=== PATIENT | female | born 1935 | race Caucasian/White ===

== ENCOUNTER 2020-02-24 13:47 | Emergency (ER) | payer MEDICARE, SELFPAY ==
[2020-02-24 14:09] VITALS: BP 179/102; PULSE 95; RESP 18; TEMP 36.8; O2SAT 98; BMI 24.7
--- NOTE | 2020-02-24 14:09 | ED.FALL ---
HPI - Fall General Chief Complaint: Fall Stated Complaint: FALL LUPE KNEE PAIN Time Seen by Provider: 02/24/20 16:49 Source: patient Mode of arrival: EMS Limitations: no limitations History of Present Illness HPI Narrative: Patient presents to the ED for fall. Patient states she was walking in her house and she tripped over furniture and landed on her back and hit her knees. Patient denies feeling dizzy, having chest pain, headache, abdominal pain, or shortness of breath before falling. Patient denies being on any blood thinners. Patient states she had knee pain earlier but then resolved. Patient states presently she just wants to eat food and has no complaints. MD complaint: fall Fall from: standing Fall witnessed: yes, by family Place fall occurred: home Loss of consciousness: none Related Data Previous Rx's Medication Instructions Recorded lisinopril 20 mg tablet 20 mg PO DAILY #90 tab 02/21/20 acetaminophen [Tylenol] 325 mg PO QID PRN #28 cap 02/24/20 Allergies Allergy/AdvReac Type Severity Reaction Status Date / Time novacaine Allergy Unknown unsure Uncoded 01/23/19 00:00 Review of Systems Review of Systems: Patient presently denies any physical complaints and would just like to eat some food. Constitutional: Constitutional: Reports as per HPI and Reports no additional constitutional complaints Eyes: Eyes: Reports as per HPI and Reports no additional eye complaints ENT: Reports system reviewed and no additional complaints, except as documented and Reports as per HPI Cardiovascular: Cardiovascular: Reports as per HPI and Reports no additional cardiovascular complaints Respiratory: Respiratory: Reports as per HPI and Reports no additional respiratory complaints Gastrointestinal: Gastrointestinal: Reports as per HPI and Reports no additional gastrointestinal complaints Musculoskeletal: Musculoskeletal: Reports no additional musculoskeletal complaints and Reports as per HPI Neurologic: Reports system reviewed and no additional complaints, except as documented and Reports as per HPI [facility] Past Medical History Medical History (Updated 02/24/20 @ 16:12 by HUGO Dukes) Hypertension Social History Social History Advance Directives: No Advance Directives Information Provided: Yes Physical Exam Vital Signs: Vital Signs: Vital Signs Temp Pulse Resp BP Pulse Ox 02/24/20 15:16 72 18 171/72 H 95 02/24/20 15:13 95 171/72 H 02/24/20 14:09 98.3 F 95 18 179/102 H 98 Body Mass Index 24.7 Const: General: cooperative, healthy appearing, comfortable, no acute distress, well developed, alert and awake Orientation/consciousness: oriented to person, oriented to place, oriented to time and patient oriented x3 HENMT: Head: Yes normal to inspection, Yes No palpable skull fracture present, No atraumatic, No abrasion, No Peña's sign, No hematoma, No laceration, No palpable skull fracture, No raccoon eyes and No scalp lesion Eyes: General: appearance normal, both eyes and all related structures Neck: Neck: Yes normal visual inspection, Yes full ROM, No no lymphadenopathy, Yes no meningeal signs, No positive Brudzinski's sign and No positive Kernig's sign Chest: Other: Negative for any ecchymosis or tenderness. Chest palpation & inspection: normal inspection of the chest and normal palpation of entire chest wall Resp: Effort & Inspection: normal respiratory effort, able to speak in complete sentences, respiratory effort not decreased, no grunting, not labored, no nasal flaring, no paradoxical thoraco-abdom movements, no pursed lip breathing, no retractions and no tripod positioning Auscultation: clear to auscultation bilaterally, no crackles, no rales, no rhonchi and no wheezes Cardio: Jugular venous distension: no JVD Heart sounds: S1 normal heart sound present and S2 normal heart sound present GI: Other: Negative for any ecchymosis or tenderness. Inspection: Yes normal to inspection and No abdominal wall ecchymosis Palpation (GI): Soft to palpation, not firm, nontender, no guarding and not rigid : General: No CVA tenderness and Yes no CVA tenderness Back/Spine/Pelvis: Other: Negative for any ecchymosis or tenderness Back: no CVA tenderness, No CVA tenderness and No back tenderness Skin: General skin exam: no rashes or lesions noted Trauma: no lacerations or abrasions, no abrasions, no lacerations and no punctures noted Neuro: General: oriented to person, oriented to place, oriented to time, patient oriented x3, gait normal, no meningeal signs and CN's II-XI intact bilaterally Cranial nerves: Yes CN's II-XII intact bilaterally Extrem: Other: patient has complete range of motion of all extremities. Patient does not have any hip tenderness or lower extremity tenderness. Negative for any internal or external rotation of lower extremities. Course Course Course Narrative: Patient presently is asymptomatic, but due to age patient will be sent for head CT, C-spine, and pelvic x-ray. Patient also be sent for bilateral knee x-ray. Patient will have a fast exam at bedside. Patient blood pressure elevated because she admitted to not taking her lisinopril this morning. Lisinopril will be ordered. Presently no labs indicated. Reevaluation(s) Reevaluation #1: Bedside fast ultrasound negative for any bleeding. Presently once again patient denies any pain. Time: 15:54 Reevaluation #2: patient images came back negative. Patient is safe for discharge. Time: 15:54 Reevaluation #3: Daughter want mother to get more services due to her falling in the house when she is alone. Spoke with case management Ana Maria who spoke with patient. Patient agreed to plan for her to have [facility] referral for more services at the house when she is alone. Daughter agrees the plan and feels safe taking mother back to the house. Case management Ana Maria wrote a referal for physical therapy/safety check and [facility] services. Time: 16:51 MDM - Fall MDM Narrative Medical decision making narrative: Mechanical fall. Discharge Plan Discharge Clinical Impression: Accident due to mechanical fall without injury Patient Disposition: Home, Self-Care Instructions: Fall Prevention (ED) Additional Instructions: return to the ED immediately for headache, nausea, vomiting, dizziness, chest pain, shortness of breath, abdominal pain, rectal bleeding, vomiting blood, blood in urine, or any other concerning symptoms. Prescriptions: New acetaminophen [Tylenol] 325 mg capsule 325 mg PO QID PRN (Reason: pain) Qty: 28 RF: 0 No Action lisinopril 20 mg tablet 20 mg PO DAILY Qty: 90 RF: 3 Referrals: Karmen Grimaldo MD [Primary Care Provider] - 2 days ( Mechanical fall. No injury.) Interventions: ED Discharge Assessment Last Done: 02/24/20 18:03 Print Language: Greenlandic
--- NOTE | 2020-02-24 14:15 | CT_ITS ---
EXAMINATION: CT HEAD WITHOUT CONTRAST CLINICAL INFORMATION: Fall, trauma, pain COMPARISON: None TECHNIQUE: Contiguous axial imaging was performed from the skull base to vertex without intravenous administration of contrast. Additional 2-D coronal and sagittal reformatted images are generated on the CT workstation and uploaded to PACS. DOSE LOWERING TECHNIQUES: This CT examination was performed using dose optimization techniques as appropriate, variously including the following: *Automated exposure control *Adjustment of mA and/or kV according to patient size (this includes techniques or standardized protocols for targeted exams where dose is matched to indication/reason for exam; i.e. extremities or head) *Use of iterative reconstruction technique DLP: 653 mGy-cm FINDINGS: There is no intracranial hemorrhage, hematoma, or extra-axial fluid collection. There is mild fullness of the ventricles and cortical sulci and fissures and cisterns representing some mild atrophic changes consistent with the patient's age. There is no hydrocephalus, edema, or mass effect. The nettles-white matter differentiation appears grossly symmetric. There is no visible acute territorial infarct or mass lesion. The calvarium appears intact. There is no pneumocephalus or orbital emphysema. The visualized sinuses and middle ears and mastoid air cells show no significant mucosal thickening. There are no air-fluid levels. IMPRESSION: No acute intracranial abnormality.
--- NOTE | 2020-02-24 14:15 | XR_ITS ---
EXAMINATION: X-RAY THE OF THE PELVIS AND HIPS, AND X-RAYS OF BOTH KNEES CLINICAL INFORMATION: Trauma and 84-year-old female patient. COMPARISON: None TECHNIQUE: AP pelvis with cone-down AP and frog leg lateral views of both hips, AP and lateral views of both knees. FINDINGS: Pelvis/hips: The pelvis is intact showing no evidence of fracture. The hips are not dislocated or fractured. There is joint space narrowing of the right hip joint compared to the left. Both knees: Neither knee shows evidence of a fracture or dislocation. There is a small suprapatellar joint effusion of the right knee. Arterial vascular calcifications are present in the adjacent soft tissues. IMPRESSION: Negative for fracture or dislocation. Small joint effusion, right knee.
--- NOTE | 2020-02-24 14:15 | CT_ITS ---
EXAMINATION: CT CERVICAL SPINE WITHOUT CONTRAST CLINICAL INFORMATION: Fall, trauma, pain COMPARISON: CT head 02/24/2020 TECHNIQUE: Multidetector volumetric CT imaging of the cervical spine is performed without contrast in the axial plane. Additional 2D reformatted coronal and sagittal images are generated on the CT workstation and uploaded to PACS. DOSE LOWERING TECHNIQUES: This CT examination was performed using dose optimization techniques as appropriate, variously including the following: *Automated exposure control *Adjustment of mA and/or kV according to patient size (this includes techniques or standardized protocols for targeted exams where dose is matched to indication/reason for exam; i.e. extremities or head) *Use of iterative reconstruction technique DLP: 204 mGy-cm FINDINGS: There is straightening of the cervical lordosis and mild levocurvature. The craniocervical junction is normal. The odontoid appears intact. There is no visible fracture, cervical vertebral compression, prevertebral soft tissue swelling, or destructive process. There are degenerative disc changes with disc narrowing C4-C5, C5-C6, C6-C7, and C7-T1. There are degenerative facet changes mid and lower cervical spine. There is mild spondylolisthesis C4-C5 under 2 mm and C7-T1 under 3 mm, likely related to the degenerative changes. No perched facet. No apical pneumothorax. IMPRESSION: 1. No acute bony abnormality or prevertebral soft tissue swelling. 2. Multilevel degenerative disc and degenerative facet changes. 3. Mild spondylolisthesis C4-C5 under 2 mm and C7-T1 under 3 mm, likely related to the degenerative changes.
--- NOTE | 2020-02-24 15:03 | PC.NURSE ---
PT ARRIVES HAVING FALLEN YESTERDAY, MECHANICAL FALL. ALTERED AT BASELINE, A&O TO PERSON AND PLACE. FELL ONTO GROUND, KNEES FIRST AND R BUTTOCK. C/O KNEE PAIN MOSTLY IN R KNEE. NO OPEN AREAS. SLIGHT SWELLING. PA AT BEDSIDE. RESP AND NONLABOURED.
--- NOTE | 2020-02-24 15:05 | PC.NURSE ---
PT DENIES HAVING TAKEN HTN MEDS THIS AM
[2020-02-24 15:13] VITALS: BP 171/72; PULSE 95
[2020-02-24] MEDS: lisinopriL 20 MG TABLET PO (15:13)
[2020-02-24 15:16] VITALS: BP 171/72; PULSE 72; RESP 18; O2SAT 95
--- NOTE | 2020-02-24 15:16 | PC.NURSE ---
PA TO BEDSIDE WITH US
--- NOTE | 2020-02-24 17:36 | MHC.CM.ED ---
PAT[facility]CHARG[facility] HOME [facility]. DUE TO TIME OF REFERRAL, NO RESPONSE RECEIVED. CASE MANAGEMENT TO FOLLOW UP IN MORNING.
== END 2020-02-24 18:15 | disposition home or self-care (01) ==
PROVIDERS: Emergency Provider Emergency Medicine; PCP Internal Medicine
DX: Z71.1 Person with feared health complaint in whom no diagnosis is made (principal); I10 Essential (primary) hypertension
CPT/HCPCS: 70450; 72125; 73521; 73560; 99284

== ENCOUNTER 2020-10-27 08:23 | Outpatient (REF) | payer MEDICARE, SELFPAY ==
--- NOTE | 2020-10-27 15:55 | MHC.AU.ANR ---
Adult Audiological Evaluation Date of Visit: 10/27/20 Reason for Appointment: Audiological evaluation due to concern for decreased hearing. Ms. Duffy notes difficulties hearing and understanding speech. She notes that she has wax in her ears and feels that the left ear is worse. Does patient feel they have a hearing loss?: Yes If Yes, Which Ear?: Both Ears When Was Hearing Difficulty First Noticed?: 3+ years ago Has hearing been tested previously?: No Hearing Handicap Inventory: HHIE SCORE: 40 Based on HHIE score, patient has: Severe perceived hearing handicap Medical History: Medical History: High Blood Pressure Medical History (Other): Broken wrist in 2002, broken ankle 2001 Allergies: Roses Medication List: Atorvastatin 20 mg, Lisinopril 20 mg Otoscopy: Right Ear: Totally occluding cerumen, removed successfully with a lighted curette Left Ear: Totally occluding cerumen, removed successfully with a lighted curette Tympanometry: Tympanometry performed due to: To determine if cerumen blockage is fully occluding canal(s) Right Ear: Normal Middle Ear System (Type A) Left Ear: Normal Middle Ear System (Type A) Hearing Evaluation: Transducer(s) Used: Insert Earphones, Bone Conduction Method: Conventional Audiometry Stimuli Used: Pure Tones Right Ear: Description of Hearing: Mild sloping to moderately severe sensorineural hearing loss from 250-8000 Hz. Left Ear: Description of Hearing: Normal hearing 250-500 Hz, sloping to a mild to moderately severe sensorineural hearing loss from 0151-8238 Hz. Speech Recognition Threshold (SRT): Method Used: Monitored Live Voice Stimuli Used: Spondee Words Right Ear: 30 dBHL Left Ear: 25 dBHL Word Discrimination: Method: Recorded Lists Word Lists Used: NU-6 Right Ear: 68% at 70 dBHL, 72% at 75 dBHL Left Ear: 76% at 70 dBHL Recommendations: Audiological re-evaluation in one year. Trial with amplification is recommended. Binaural hearing aids are recommended based on the type and degree of hearing loss and Ms. Duffy's sharing listening concerns. Hearing aid options were discussed and hearing aids are being ordered. Diagnosis: Primary Diagnosis: H90.3 Bilateral Sensorineural Hearing Loss Services Performed: Services Performed: Comprehensive Audiological Evaluation (CPT 53484) Tympanometry (CPT 72616) Signature: Provider: Ammy Linton, CCC-A
--- NOTE | 2020-10-27 15:56 | MHC.AU.MED ---
Medical Clearance for Hearing Instrumentation Date: 10/27/20 Patient Name: Nikia Duffy Date of : 1935 Referring Provider: Karmen Tierney MD We have seen your patient on 10/27/20 and have determined that they are a candidate for amplification (See accompanying report). Specifically, they would benefit from: Hearing aid use in both ears There is a statute that addresses Medical Evaluation Requirements prior to fitting a patient with a hearing aid. According to [place] statute 265 CMR:6.03(1), (a) General. Except as provided in 265 CMR 6.03(1)(b), a cap sewer shall not sell a hearing aid unless the prospective user has presented to the cap sewer a written statement signed by a licensed physician that states that the patient's hearing loss has been medically evaluated and the patient may be considered a candidate for a hearing aid. The medical evaluation must have taken place within the preceding six months. Please note: Due to the [place] Statute referenced above, we cannot accept a signature other than that of a licensed physician. EDGE BANDER OPERATOR and PA signatures cannot be accepted. I am in agreement with the above recommendation. There is no medical contraindication for hearing instrumentation. Physician Signature Date Physician Name (Printed)
== END 2020-10-27 08:24 | disposition home or self-care (01) ==
LOC: HO.SH 08:23
PROVIDERS: Visit Provider Internal Medicine
DX: H91.90 Unspecified hearing loss, unspecified ear (principal)
CPT/HCPCS: 92557; 92567

== ENCOUNTER 2020-10-27 09:55 | Outpatient (REF) | payer SELFPAY ==
--- NOTE | 2020-10-27 16:20 | MHC.AU.HAS ---
Hearing Aid Evaluation Date of Visit: 10/27/20 Historical Information: Description of Hearing: Mild to moderately severe sensorineural hearing loss bilaterally Summary: Ms. Duffy was seen today for an audiological evaluation and binaural hearing aids are recommended. She is a new hearing aid user. Discussed style and technology options. Interested in trying rechargeable ROZINA style aids with custom earmolds. Hearing Aid Prescription: Based on the individual?s shared listening needs, communication environments, dexterity, desire for connectivity, and personal preferences, the following prescription for amplification has been made: Right ear: Hub Cutter Apprentice: Phonak Model: Audeo P90-R Battery Size: Rechargeable Color: P5 - Champagne Oxidation Operator: Size 1 M Type of Mold: cShell Left ear: Left ear prescription to be same as Right Hearing Aid above: Hub Cutter Apprentice: Phonak Model: Audeo P90-R Battery Size: Rechargeable Color: P5 - Champagne Oxidation Operator: Size 1 M Type of Mold: cShell Accessories/Assistive Technology Recommended: TV Connector Promo Plan of Care: Earmold Impressions Taken. Medical Clearance to be requested from PCP/ENT. Hearing Instrument Fitting to be scheduled when materials arrive. Hearing aids ordered. Primary Diagnosis: H90.3 Bilateral Sensorineural Hearing Loss Signature: Provider: Ammy Linton, KAYY-A
== END 2020-10-27 09:56 | disposition home or self-care (01) ==
LOC: HO.HAP 09:55
PROVIDERS: Visit Provider Internal Medicine
DX: Z46.1 Encounter for fitting and adjustment of hearing aid (principal)
CPT/HCPCS: 92591; 92700

== ENCOUNTER 2020-12-07 10:12 | Outpatient (REF) | payer SELFPAY | END 2020-12-07 10:13 | disposition home or self-care (01) | LOC: HO.HAP 10:12 | PROVIDERS: Visit Provider Internal Medicine | DX: Z46.1 Encounter for fitting and adjustment of hearing aid (principal); H90.3 Sensorineural hearing loss, bilateral | CPT/HCPCS: V5261; V5299 ==

== ENCOUNTER 2021-04-05 08:55 | Inpatient (IN) | payer MEDICARE, SELFPAY ==
--- NOTE | ~2021-04-05 | US_ITS ---
EXAMINATION: US PELVIS CLINICAL INFORMATION: Left adnexal mass. Pain. COMPARISON: None TECHNIQUE: Transabdominal pelvic ultrasound was performed. Doppler evaluation of the ovarian vessels including waveform spectral analysis was performed. FINDINGS: The uterus is anteverted and measures 8.7 x 2.7 x 4.5 cm. No focal uterine lesion is seen. Endometrial thickness measures 7 mm which is slightly thickened for a postmenopausal patient. The ovaries are not identified. There is question of a complex partially solid partially cystic right adnexal mass that measures 3.8 x 2.3 x 2.9 cm. There is a solid left adnexal mass that measures 7.5 x 4.5 x 5.4 cm. Arterial and venous flow is documented to both adnexa. There is no evidence of torsion. There is no fluid in the pelvis. US/US pelvic complete IMPRESSION: 7.5 x 4.5 x 5.7 cm solid left adnexal mass. Question 3.8 x 2.3 x 2.9 cm complex cystic right adnexal lesion. No evidence of torsion. Minimally thickened endometrium.
--- NOTE | ~2021-04-05 | CT_ITS ---
EXAMINATION: CT CHEST WITHOUT CONTRAST CLINICAL INFORMATION: Hypoxia COMPARISON: Previous chest x-ray from earlier the same day TECHNIQUE: Multidetector volumetric CT imaging of the chest was done. Axial MIP volume rendering provided. Sagittal and coronal reformatted images were obtained. This CT examination was performed using dose optimization techniques as appropriate, variously including the following: *Automated exposure control *Adjustment of mA and/or kV according to patient size (this includes techniques or standardized protocols for targeted exams where dose is matched to indication/reason for exam; i.e. extremities or head) *Use of iterative reconstruction technique DLP: 247 mGy-cm FINDINGS: CAREER COACH: LUNGS: There is a 3 mm calcified right upper lobe nodule axial image 132 series 7. There are bilateral 2 mm noncalcified right upper lobe nodule axial image 132 series 7. There is a 3 mm peripheral or subpleural right upper lobe nodule adjacent to the major fissure axial image 139 series 7. There is subsegmental atelectasis or scarring in the anterior segment of the right upper lobe and bilateral lower lobes. MEDIASTINUM: The heart is enlarged. There is coronary artery calcification. There is no pericardial effusion. The thoracic aorta is normal in caliber. There are no enlarged hilar or mediastinal lymph nodes. PLEURA: There is a small left pleural effusion. There is no right pleural effusion or pleural thickening. There is no pneumothorax. AXILLA: No lymphadenopathy. OSSEOUS STRUCTURES: There are degenerative changes of the spine. There is increased thoracic kyphosis. 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 Ankylosing spondylitis should be considered. There are degenerative changes at the shoulder joints. CT/CT chest wo con IMPRESSION: Small calcified and noncalcified pulmonary nodules or micronodules. According to the UPDATED 2017 Fleischner Society recommendations, the advised follow-up imaging for less than 6 mm nodule: Low risk, no chest CT follow-up and high risk, optional chest CT follow-up in one year. Bibasilar atelectasis and right upper lobe atelectasis. Small left pleural effusion. Fleischner guidelines were followed.
--- NOTE | ~2021-04-05 | US_ITS ---
EXAMINATION: US PELVIS CLINICAL INFORMATION: Left adnexal mass. Pain. COMPARISON: None TECHNIQUE: Transabdominal pelvic ultrasound was performed. Doppler evaluation of the ovarian vessels including waveform spectral analysis was performed. FINDINGS: The uterus is anteverted and measures 8.7 x 2.7 x 4.5 cm. No focal uterine lesion is seen. Endometrial thickness measures 7 mm which is slightly thickened for a postmenopausal patient. The ovaries are not identified. There is question of a complex partially solid partially cystic right adnexal mass that measures 3.8 x 2.3 x 2.9 cm. There is a solid left adnexal mass that measures 7.5 x 4.5 x 5.4 cm. Arterial and venous flow is documented to both adnexa. There is no evidence of torsion. There is no fluid in the pelvis. US/US pelvic ovarian doppler IMPRESSION: 7.5 x 4.5 x 5.7 cm solid left adnexal mass. Question 3.8 x 2.3 x 2.9 cm complex cystic right adnexal lesion. No evidence of torsion. Minimally thickened endometrium.
--- NOTE | ~2021-04-05 | XR_ITS ---
EXAMINATION: XR CHEST CLINICAL INFORMATION: Hypoxia. COMPARISON: None TECHNIQUE: 2 views of the chest were obtained. FINDINGS: The left diaphragm is elevated with mild atelectatic changes left lung base. Rest of lungs are clear. The heart size and pulmonary vascularity is normal. No gross bony abnormality seen. XR/XR chest 2V IMPRESSION: Limited left hemidiaphragm with left basilar atelectasis. Rest of the lungs are clear.
--- NOTE | ~2021-04-05 | CT_ITS ---
EXAMINATION: CT ABDOMEN AND PELVIS WITHOUT CONTRAST CLINICAL INFORMATION: Abdominal pain and distention COMPARISON: None TECHNIQUE: Multidetector volumetric imaging was performed from the superior aspect of the liver through the pubic symphysis. Sagittal and coronal reformatted images were obtained on the technologist's workstation. This CT examination was performed using dose optimization techniques as appropriate, variously including the following: *Automated exposure control *Adjustment of mA and/or kV according to patient size (this includes techniques or standardized protocols for targeted exams where dose is matched to indication/reason for exam; i.e. extremities or head) *Use of iterative reconstruction technique DLP: 676 mGy-cm FINDINGS: LIVER, GALLBLADDER, AND BILIARY TREE: The liver is normal in size, shape, and attenuation. No focal hepatic lesion or biliary ductal dilatation is present. There are gallstones. The gallbladder is otherwise unremarkable. PANCREAS: Unremarkable. SPLEEN: Unremarkable. ADRENAL GLANDS: Unremarkable. KIDNEYS AND URETERS: The kidneys are normal in size, shape, and attenuation. No hydronephrosis, hydroureter, or calculi seen. There is a small 5 mm hyperdense cyst in the left kidney. BLADDER: Unremarkable. GASTROINTESTINAL TRACT: The small bowel is normal in caliber. The colon is dilated down to the rectum. The cecum and transverse colon contain a large amount of stool. The splenic flexure and proximal left colon appears air-filled. The distal left colon and sigmoid colon appear fluid filled. There is question of mild wall thickening of the distal left colon and sigmoid colon/mild colitis. There is stranding of the fat and prominent vessels in the mesentery adjacent to the left colon and sigmoid colon. There is a left inguinal hernia containing small bowel. There is no evidence of obstruction. There may be a small hiatal hernia. The stomach is otherwise unremarkable. ABDOMINAL WALL: There is a small umbilical hernia containing fat. There is a small right inguinal hernia containing fat and fluid. There is a left inguinal hernia containing small bowel. There is no evidence of obstruction. LYMPH NODES: Normal. VASCULAR: Atherosclerotic disease. PELVIC VISCERA: There is increased soft tissue seen in the left pelvis worrisome for a left adnexal mass. This measures 4.6 x 7 x 8.6 cm. The uterus and right adnexa are unremarkable. OSSEOUS STRUCTURES: There are degenerative changes of the spine and hip joints.. CT/CT abdomen pelvis wo con IMPRESSION: Dilated colon down to the rectum. Large amount of stool in the proximal colon. The distal colon appears fluid-filled and there is question of mild bowel wall thickening of the distal left and sigmoid colon/mild colitis and changes in the mesentery. Colonic ileus and distal obstruction should be considered. Imaging follow-up recommended. Normal caliber small bowel. Left inguinal hernia containing small bowel. No evidence of obstruction. Small umbilical hernia containing fat and right inguinal hernia containing fat and small amount of fluid. Gallstones. 4.5 x 7 x 8.5 cm left pelvic mass probably representing an adnexal mass. This could be better evaluated with pelvic ultrasound. Fleischner guidelines were followed.
--- NOTE | ~2021-04-05 | CT_ITS ---
EXAMINATION: CT HEAD WITHOUT CONTRAST CLINICAL INFORMATION: Weakness/confusion COMPARISON: CT 02/24/2020 TECHNIQUE: Contiguous axial imaging was performed from the skull base to vertex without intravenous administration of contrast. This CT examination was performed using dose optimization techniques as appropriate, variously including the following: *Automated exposure control *Adjustment of mA and/or kV according to patient size (this includes techniques or standardized protocols for targeted exams where dose is matched to indication/reason for exam; i.e. extremities or head) *Use of iterative reconstruction technique DLP: 868 mGy-cm FINDINGS: There is no evidence of acute intracranial hemorrhage or territorial infarction. No abnormal mass effect or midline shift is seen. Negrete to white matter differentiation is well preserved. No extra-axial fluid collections are identified. The lateral ventricles are symmetrical in size and configuration without enlargement. There is mild periventricular hypodensity in both cerebral hemispheres without mass effect. The osseous structures and soft tissues are normal. The mastoid air cells and visualized portions of the paranasal sinuses are well aerated. CT/CT head/brain wo con IMPRESSION: No acute intracranial process seen. Age-related mild cerebral volume loss with chronic small vessel ischemic changes. No change from CT brain 02/24/2020
[2021-04-05 09:05] VITALS: BP 137/61; PULSE 94; RESP 18; TEMP 37.9; O2SAT 92; BMI 24.0
--- NOTE | 2021-04-05 09:11 | ECG_ITS ---
Test Reason : weakness Blood Pressure : / mmHG Vent. Rate : 091 BPM Atrial Rate : 091 BPM P-R Int : 146 ms QRS Dur : 088 ms QT Int : 370 ms P-R-T Axes : 063 019 -06 degrees QTc Int : 455 ms Sinus rhythm with Premature supraventricular complexes Nonspecific T wave abnormality Abnormal ECG When compared with ECG of 01-MAY-2002 09:48, T wave inversion now evident in Inferior leads Lateral leads Referred By: Alicia Harkins Electronically Signed By:LAURI EVANS MD
[2021-04-05 09:19] VITALS: BP 114/45; PULSE 90; RESP 18; O2SAT 98
[2021-04-05 09:21] LABS: MANUAL DIFF FLAG NO
[2021-04-05 09:24] LABS: Basophils Percent Auto 0.2 % (0-2); Eosinophils Percent Auto 0.1 % (0-4); Hematocrit 36.8 % (37.0-47.0); Hemoglobin 12.2 g/dl (12.0-16.0); Imm Gran Abs Auto 0.02 X10*3/uL (0.00-0.03); Imm Gran Pct Auto 0.2 % (0.0-0.4); Lymphocytes Percent Auto 11.9 % (20-40); Mean Corpuscular HGB Conc 33.2 g/dl (31.0-35.0); Mean Corpuscular Hemoglobin 30.8 pg (27.0-33.0); Mean Corpuscular Volume 92.9 fL (80.0-98.0); Mean Platelet Volume 9.2 fL (9.4-12.3); Monocytes Absolute Auto 1.3 X10*3/uL (0.1-1.2); Monocytes Percent Auto 15.7 % (2-11); Neutrophils Absolute Auto 5.8 x10*3/uL (2.0-8.3); Neutrophils Percent Auto 71.9 % (45-73); Platelet Count 235 X10*3/uL (160-400); Red Blood Count 3.96 X10*6/uL (4.20-5.50); Red Cell Distribution Width 12.7 % (11.0-16.0); White Blood Count 8.1 X10*3/uL (4.8-10.8)
[2021-04-05] MEDS: 0.9 % Sodium Chloride 1,000 ML 999 ML IVCONT (09:26)
[2021-04-05] MEDS: Acetaminophen 325 MG TABLET 650 MG PO (09:26)
--- NOTE | 2021-04-05 09:28 | ED_ITS ---
HPI - Weakness General Chief complaint: Weakness Stated complaint: AMS,WEAKNESS,DIARRHEA,FOUL URINE Time Seen by Provider: 04/05/21 09:10 Source: patient and EMS Mode of arrival: EMS Limitations: altered mental status History of Present Illness HPI Narrative: 85-year-old female with a history of mild dementia, HTN, HLD presents to the ER via EMS from home for evaluation of weakness and confusion for the last couple of days per family. Family reports she is usually able to walk with a walker but has been unable to due to weakness. She has had decreased p.o. intake. They noticed that she has had very foul-smelling urine and concern for a UTI. She also has had very watery and foul smelling diarrhea for the last 7 days. She denies abdominal pain. Patient has no complaints on arrival aside from some generalized weakness. She knows it is 2020 but thinks we just celebrated [place] Day. She denies any pain, nausea, vomiting, shortness of breath. She was hypoxic for EMS in the high 80s. On arrival here SpO2 89-90% on room air so was placed on 2 L nasal cannula with improvement to 99%. She denies any shortness of breath or cough. She denies dysuria. MD Complaint: generalized weakness Onset (ago): day(s) (2) Duration: progressively worsening Location: generalized Migration: none Severity: moderate Relieving factors: none Exacerbating factors: none Associated symptoms: confusion and loss of appetite Related Data Home Medications Medication Instructions Recorded Confirmed lisinopril 20 mg tablet 1 tab PO DAILY 04/05/21 04/05/21 Previous Rx's Medication Instructions Recorded acetaminophen 325 mg capsule 325 mg PO QID PRN #28 cap 02/24/20 (Tylenol) atorvastatin 20 mg tablet 20 mg PO DAILY #90 tab 07/05/20 Allergies Allergy/AdvReac Type Severity Reaction Status Date / Time novacaine Allergy Intermediate Dizziness Uncoded 08/11/20 14:11 Review of Systems Review of Systems: Constitutional: No Fever, No Chills ENT/Mouth: No sore throat, No Rhinorrhea, No Swallowing Difficulty Eyes: No Eye Pain, No Swelling, + Redness Cardiovascular: No Chest Pain, No SOB, No Orthopnea, No Edema Respiratory: No Cough, No Sputum, No Wheezing, No dyspnea Gastrointestinal: No Nausea, No Vomiting, + Diarrhea, No abdominal Pain, No Hematochezia, No Melena Genitourinary: No Dysuria, No Urinary Frequency, No Hematuria Musculoskeletal: No joint pain, No Myalgias Skin: No Skin Lesions, No rash Neuro: + Weakness, No Numbness, No Dizziness, No Headache Psych: No Anxiety/Panic, No Depression Heme/Lymph: No Bruising, No Lymphadenopathy Endocrine: No Polyuria, No Polydipsia PMFSH Past Medical History Attestation statement: The following information was validated with the patient. Medical History Dyslipidemia Fall Hearing loss Hypertension Surgical History History of arthroplasty of left ankle Family History Family History Father No problems noted. Mother CAD (coronary artery disease) Social History Social History Alcohol intake: never Patient Tobacco Use Status: Never used Tobacco Use of substances other than those prescribed or required for medical reasons: No Advance Directives: Yes Advance Directives on File: Yes Advance Directives Date on File: 04/05/21 Physical Exam Vital Signs: Vital Signs: Last Vital Signs Temp 98.0 F 04/05/21 14:26 Pulse 82 04/05/21 14:26 Resp 18 04/05/21 14:26 BP 116/51 L 04/05/21 14:26 Pulse Ox 96 04/05/21 14:26 Body Mass Index 24.0 Appearance: Elderly female laying in bed, eyes closed. Comfortable. Oriented X2. No acute distress. Eyes: Pupils equal, round and reactive to light. Left eye with medial subconjuntival hemorrhage ENT: Pharynx normal. Neck: Normal inspection. Neck supple. CVS: Normal heart rate and rhythm. Pulses normal. +murmur best appreciated at right sternal border Respiratory: No respiratory distress. Breath sounds diminished at bilateral bases, no wheezes, rhonchi or rales. Abdomen: Softly distended and nontender. +BS x4 Skin: Skin warm and dry. Normal skin color. Normal skin turgor. No rashes. Extremities: 1+ lower extremity edema to lower legs and ankles. No calf tenderness Neuro: Oriented X 2. No motor deficit. No sensory deficit. Generalized weakness noted, nonfocal. Course Course Course Narrative: 85-year-old female with a history of mild dementia, HTN, HLD presenting to the ER for weakness, confusion and foul-smelling urine & watery diarrhea for the last 2 days. Concern for UTI. She has a low-grade fever of 100.3 with heart rate 94 and saturation 90% on room air. SpO2 on 2 L nasal cannula is 99%. No respiratory complaints. Will obtain two view chest x-ray to rule out pneumonia along with metabolic and septic workup. Anticipate patient will need to be admitted. Reevaluation(s) Reevaluation #1: No leukocytosis. BUN slightly elevated 25 with normal creatinine. Her urinalysis is negative for infection. Chest x-ray showing left basilar atelectasis limited due to rotation of note there is significant colonic distention lot noted below the diaphragm. Will proceed with CT chest abdomen pelvis for further evaluation. Will empirically treat for possible left lower lobe pneumonia with Rocephin and azithromycin. Reevaluation #2: Patient had large volume very watery and foul-smelling stool. Confirm with family at the bedside that she has not been on antibiotics r ecently. She has no history of C diff. No one else at home is sick. CT scan of the abdomen is showing a dilated colon down to the rectum. There was a large amount of stool in the proximal colon. Question of some mild wall thickening in the left distal colon and sigmoid colon consistent with possible colitis with changes in the mesentery. Colonic ileus and distal obstruction may be considered however she is having large volume stools. Of note there is also a large 4 x 7 x 5 cm pelvic mass most likely originating from the left adnexa. Pelvic ultrasound will be ordered to further evaluate. She does not have any left lower quadrant or left-sided pelvic pain to suggest ovarian torsion. Will have surgery look at the imaging to see if they agree with the assessment of possible distal obstruction. Reevaluation #3: Dr. Martin evaluated the CT scan does not feel it is consistent with colonic obstruction. He is recommending a GI evaluation of possible flex sigmoidoscopy. Hospitalist has been contacted for admission for further management. Patient and family updated at the bedside. Consultations Consultation #1: Dr. Martin - General Surgery MDM - Weakness Lab Data Result diagrams: 04/05/21 09:15 04/05/21 09:15 Labs: Lab Results 04/05/21 04/05/21 04/05/21 Range/Units 09:15 09:15 09:15 WBC 8.1 (4.8-10.8) X10*3/uL RBC 3.96 L (4.20-5.50) X10*6/uL Hgb 12.2 (12.0-16.0) g/dl Hct 36.8 L (37.0-47.0) % MCV 92.9 (80.0-98.0) fL MCH 30.8 (27.0-33.0) pg MCHC 33.2 (31.0-35.0) g/dl RDW 12.7 (11.0-16.0) % Plt Count 235 (160-400) X10*3/uL MPV 9.2 L (9.4-12.3) fL Immature Gran % (Auto) 0.2 (0.0-0.4) % Neut % (Auto) 71.9 (45-73) % Lymph % (Auto) 11.9 L (20-40) % [place] % (Auto) 15.7 H (2-11) % Eos % (Auto) 0.1 (0-4) % Baso % (Auto) 0.2 (0-2) % Lymph # (Auto) 1.0 L (1.2-4.9) X10*3/uL [place] # (Auto) 1.3 H (0.1-1.2) X10*3/uL Eos # (Auto) 0.0 (0.0-0.4) X10*3/uL Baso # (Auto) 0.0 (0.0-0.2) X10*3/uL Abs Immat Gran (auto) 0.02 (0.00-0.03) X10*3/uL Absolute Neuts (auto) 5.8 (2.0-8.3) x10*3/uL Absolute Nucleated RBC 0.000 (0.0-0.012) X10*3/uL Nucleated RBC % (auto) 0.0 (0.0-0.2) /100WBC Sodium 137 (135-145) mmol/L Potassium 3.9 (3.3-5.1) mmol/L Chloride 103 (96-108) mmol/L Carbon Dioxide 26 (22-29) mmol/L Anion Gap 12 (12-20) BUN 25 H (9-16) mg/dL Creatinine 0.79 (0.5-1.4) mg/dL Estim Creat Clear Calc 44.1 Estimated GFR > 60 Random Glucose 112 (60-115) mg/dL Lactic Acid 0.9 (0.5-2.0) mmol/L Calcium 8.5 (8.4-10.2) mg/dL Magnesium 1.6 (1.6-2.6) mg/dL Total Bilirubin 0.9 (0.0-1.0) mg/dL Direct Bilirubin 0.4 (0.0-0.5) mg/dL AST 19 (5-31) U/L ALT 17 (0-31) U/L Alkaline Phosphatase 76 (39-117) U/L B-Natriuretic Peptide (<100) pg/mL Total Protein 5.7 L (6.5-8.0) g/dL Albumin 3.4 L (3.5-5.0) g/dL Urine Color Urine Appearance Urine pH (5.0-8.0) Ur Specific [place] (1.005-1.025) Urine Protein (NEG-TRACE) MG/DL Urine Glucose (UA) (NEG) MG/DL Urine Ketones (NEG) MG/DL Urine Blood (NEG) Urine Nitrite (NEG) Ur Leukocyte Esterase (NEG) COVID-19 (AJ) (Negative) COVID-19 Clin Com 04/05/21 04/05/21 04/05/21 Range/Units 09:15 09:56 15:26 WBC (4.8-10.8) X10*3/uL RBC (4.20-5.50) X10*6/uL Hgb (12.0-16.0) g/dl Hct (37.0-47.0) % MCV (80.0-98.0) fL MCH (27.0-33.0) pg MCHC (31.0-35.0) g/dl RDW (11.0-16.0) % Plt Count (160-400) X10*3/uL MPV (9.4-12.3) fL Immature Gran % (Auto) (0.0-0.4) % Neut % (Auto) (45-73) % Lymph % (Auto) (20-40) % [place] % (Auto) (2-11) % Eos % (Auto) (0-4) % Baso % (Auto) (0-2) % Lymph # (Auto) (1.2-4.9) X10*3/uL [place] # (Auto) (0.1-1.2) X10*3/uL Eos # (Auto) (0.0-0.4) X10*3/uL Baso # (Auto) (0.0-0.2) X10*3/uL Abs Immat Gran (auto) (0.00-0.03) X10*3/uL Absolute Neuts (auto) (2.0-8.3) x10*3/uL Absolute Nucleated RBC (0.0-0.012) X10*3/uL Nucleated RBC % (auto) (0.0-0.2) /100WBC Sodium (135-145) mmol/L Potassium (3.3-5.1) mmol/L Chloride (96-108) mmol/L Carbon Dioxide (22-29) mmol/L Anion Gap (12-20) BUN (9-16) mg/dL Creatinine (0.5-1.4) mg/dL Estim Creat Clear Calc Estimated GFR Random Glucose (60-115) mg/dL Lactic Acid (0.5-2.0) mmol/L Calcium (8.4-10.2) mg/dL Magnesium (1.6-2.6) mg/dL Total Bilirubin (0.0-1.0) mg/dL Direct Bilirubin (0.0-0.5) mg/dL AST (5-31) U/L ALT (0-31) U/L Alkaline Phosphatase (39-117) U/L B-Natriuretic Peptide 182 H (<100) pg/mL Total Protein (6.5-8.0) g/dL Albumin (3.5-5.0) g/dL Urine Color YELLOW Urine Appearance CLEAR Urine pH 5.5 (5.0-8.0) Ur Specific [place] 1.020 (1.005-1.025) Urine Protein NEG (NEG-TRACE) MG/DL Urine Glucose (UA) NEG (NEG) MG/DL Urine Ketones 5 (NEG) MG/DL Urine Blood NEG (NEG) Urine Nitrite NEG (NEG) Ur Leukocyte Esterase NEG (NEG) COVID-19 (AJ) Negative (Negative) COVID-19 Clin Com See Note Critical Care Time Critical Care Time Critical Care Time: Yes Total Critical Care Time: 38 Attestation: I have personally provided critical care time exclusive of time spent on separately billable procedures. Time includes review of lab data, radiology results, discussion with consultants/hospitalist, and monitoring for potential decompensation. Intervention performed as documented. Discharge Plan Discharge Clinical Impression: Watery diarrhea, Colitis, Weakness, Pelvic mass, Hypoxia Patient Disposition: Admitted As Inpatient
[2021-04-05 09:32] LABS: Lactic Acid 0.9 mmol/L (0.5-2.0)
[2021-04-05 09:37] LABS: Alanine Aminotransferase 17 U/L (0-31); Albumin Level 3.4 g/dL (3.5-5.0); Alkaline Phosphatase 76 U/L (39-117); Anion Gap 12 (12-20); Aspartate Amino Transferase 19 U/L (5-31); Bilirubin Direct 0.4 mg/dL (0.0-0.5); Bilirubin Total 0.9 mg/dL (0.0-1.0); Blood Urea Nitrogen 25 mg/dL (9-16); Calcium 8.5 mg/dL (8.4-10.2); Carbon Dioxide 26 mmol/L (22-29); Chloride 103 mmol/L (96-108); Creatinine Clr Calc Pharmacy 44.1; Estimated Glomerular Filt Rate > 60; Glucose Random 112 mg/dL (60-115); Magnesium 1.6 mg/dL (1.6-2.6); Potassium 3.9 mmol/L (3.3-5.1); Sodium 137 mmol/L (135-145); Total Protein 5.7 g/dL (6.5-8.0)
[2021-04-05 09:44] LABS: COVID-19 Test Negative (Negative)
[2021-04-05 10:16] LABS: Appearance Urine CLEAR; Color Urine YELLOW; Glucose Urine UA NEG (NEG); Leukocyte Esterase Urine NEG (NEG); Nitrite Urine NEG (NEG); PH 5.5 (5.0-8.0); Urine Blood NEG (NEG); Urine Ketones 5 MG/DL (NEG); Urine Protein NEG (NEG-TRACE)
--- NOTE | 2021-04-05 10:39 | PHA.MEDREC ---
Pharmacy Consult ? Medication Reconciliation Pharmacy has completed the medication reconciliation.
[2021-04-05 10:42] VITALS: PULSE 77; RESP 17; TEMP 36.8; O2SAT 98
[2021-04-05] MEDS: cefTRIAXone sodium 1 GM in 0.9 % Sodium Chloride 50 ML IV (10:48)
[2021-04-05] MEDS: Azithromycin 500 MG in 0.9 % Sodium Chloride 250 ML 125 MG IV (11:30)
[2021-04-05 14:26] VITALS: BP 116/51; PULSE 82; RESP 18; TEMP 36.7; O2SAT 96
[2021-04-05] MEDS: metroNIDAZOLE/NS 500 MG/100 ML PIGGYBACK 100 MG IV ×2 (14:29→21:37)
[2021-04-05 15:52] LABS: B Type Natriuretic Peptide 182 pg/mL (<100)
--- NOTE | 2021-04-05 16:08 | P.HPHOSP_ITS ---
History of Present Illness Date of Service: 04/05/21 Chief Complaint: diarrhea, weakness 85F brought in by ambulance after family called for weakness and confusion. patient started having diarrhea about 1 week ptp. she was treated with OTC antidiarrheals with improvement in diarrhea. diarrhea was watery and brown. she denied blood or abdominal pain, no fever no chills. patient then started becoming progressively weaker, diffculty ambulating (normally ambulates with walker), increased confusion (normally AO X3, with mild cognitive impairment), decreased appetite. in EMS was noted to have 88% saturation on room air, though in ED was not hypoxic. CT chest was unremarkable, CT abdomen showed diffuse colitis, large adnexal mass. Review of Systems Review of Systems: Constitutional: Denies fever, denies Chills Eyes: denies blurry vision ENT: denies sore throat CVS: denies chest pain Respiratory: Denies dyspnea GI: no abdominal pain : denies dysuria MSK: denies neck pain Skin: denies rash Neuro: denies specific motor weakness Psych: denies suicidal ideation Endocrine: denies heat/cold intolerance Hematologic: denies easy bleeding Allergy: denies hives [facility] Medical History Dyslipidemia Fall Hearing loss Hypertension Family History Father No problems noted. Mother CAD (coronary artery disease) Surgical History History of arthroplasty of left ankle Social History Alcohol intake: never Patient Tobacco Use Status: Never used Tobacco Use of substances other than those prescribed or required for medical reasons: No Advance Directives: Yes Advance Directives on File: Yes Advance Directives Date on File: 04/05/21 Meds Allergies Allergy/AdvReac Type Severity Reaction Status Date / Time novacaine Allergy Intermediate Dizziness Uncoded 08/11/20 14:11 Active Medications: Current Medications Enoxaparin Sodium (Enoxaparin Sodium 40 Mg/0.4 Ml Syringe) 40 mg SUBCUT Q24H BIBI Lactated Ringer's (Lr) 1,000 mls @ 80 mls/hr IVCONT .[id number] BIBI Ceftriaxone Sodium 1 gm/ (Sodium Chloride) 50 mls @ 100 mls/hr IV Q24H [facility] Metronidazole (Flagyl) 500 mg in 100 mls @ 100 mls/hr IV Q8H [facility] Pharmacy Consult (Consult Rx Perform Med Rec) 1 each MISCELLANE ONCE PRN PRN Reason: Consult order Sodium Chloride (0.9 % Sodium Chloride Flush 3 Ml Syringe) 3 ml IVFLUSH QSHIFT [facility] Home Medications Medication Instructions Recorded Confirmed Last Taken Type lisinopril 20 mg tablet 1 tab PO DAILY 04/05/21 04/05/21 04/04/21 History Physical Exam Vital Signs and Narrative: Vital Signs: Last Vital Signs Temp 98.0 F 04/05/21 14:26 Pulse 82 04/05/21 14:26 Resp 18 04/05/21 14:26 BP 116/51 L 04/05/21 14:26 Pulse Ox 96 04/05/21 14:26 Body Mass Index 24.0 General: no acute distress, frail, fatigued HEENT: atraumatic Neck: normal to visual inspection CVS: S1, S2, RRR Resp: CTA bilateral Chest: non tender GI: soft, non tender, distended : no CVA tenderness Skin: no rashes Extremities: no edema Neuro: Oriented X3, grossly intact Psych: cooperative Results Labs CBC and Chem 7: 04/05/21 09:15 04/05/21 09:15 Labs: Laboratory Results - last 24 hr 04/05/21 04/05/21 04/05/21 09:15 09:15 09:15 MCV 92.9 MCH 30.8 MCHC 33.2 RDW 12.7 Plt Count 235 MPV 9.2 L Immature Gran % (Auto) 0.2 Neut % (Auto) 71.9 Lymph % (Auto) 11.9 L [place] % (Auto) 15.7 H Eos % (Auto) 0.1 Baso % (Auto) 0.2 Lymph # (Auto) 1.0 L [place] # (Auto) 1.3 H Eos # (Auto) 0.0 Baso # (Auto) 0.0 Abs Immat Gran (auto) 0.02 Absolute Neuts (auto) 5.8 Absolute Nucleated RBC 0.000 Nucleated RBC % (auto) 0.0 Anion Gap 12 Estim Creat Clear Calc 44.1 Estimated GFR > 60 Random Glucose 112 Lactic Acid 0.9 Calcium 8.5 Magnesium 1.6 Total Bilirubin 0.9 Direct Bilirubin 0.4 AST 19 ALT 17 Alkaline Phosphatase 76 B-Natriuretic Peptide Total Protein 5.7 L Albumin 3.4 L Urine Color Urine Appearance Urine pH Ur Specific [place] Urine Protein Urine Glucose (UA) Urine Ketones Urine Blood Urine Nitrite Ur Leukocyte Esterase COVID-19 (AJ) COVID-19 Clin Com 04/05/21 04/05/21 04/05/21 09:15 09:56 15:26 MCV MCH MCHC RDW Plt Count MPV Immature Gran % (Auto) Neut % (Auto) Lymph % (Auto) [place] % (Auto) Eos % (Auto) Baso % (Auto) Lymph # (Auto) [place] # (Auto) Eos # (Auto) Baso # (Auto) Abs Immat Gran (auto) Absolute Neuts (auto) Absolute Nucleated RBC Nucleated RBC % (auto) Anion Gap Estim Creat Clear Calc Estimated GFR Random Glucose Lactic Acid Calcium Magnesium Total Bilirubin Direct Bilirubin AST ALT Alkaline Phosphatase B-Natriuretic Peptide 182 H Total Protein Albumin Urine Color YELLOW Urine Appearance CLEAR Urine pH 5.5 Ur Specific [place] 1.020 Urine Protein NEG Urine Glucose (UA) NEG Urine Ketones 5 Urine Blood NEG Urine Nitrite NEG Ur Leukocyte Esterase NEG COVID-19 (AJ) Negative COVID-19 Clin Com See Note Imaging Radiologist's Impressions: Impressions Chest X-Ray 04/05/21 09:22 IMPRESSION: Limited left hemidiaphragm with left basilar atelectasis. Rest of the lungs are clear. Head CT 04/05/21 10:25 IMPRESSION: No acute intracranial process seen. Age-related mild cerebral volume loss with chronic small vessel ischemic changes. No change from CT brain 02/24/2020 Abdomen/Pelvis CT 04/05/21 11:20 IMPRESSION: Dilated colon down to the rectum. Large amount of stool in the proximal colon. The distal colon appears fluid-filled and there is question of mild bowel wall thickening of the distal left and sigmoid colon/mild colitis and changes in the mesentery. Colonic ileus and distal obstruction should be considered. Imaging follow-up recommended. Normal caliber small bowel. Left inguinal hernia containing small bowel. No evidence of obstruction. Small umbilical hernia containing fat and right inguinal hernia containing fat and small amount of fluid. Gallstones. 4.5 x 7 x 8.5 cm left pelvic mass probably representing an adnexal mass. This could be better evaluated with pelvic ultrasound. Fleischner guidelines were followed. Chest CT 04/05/21 11:20 IMPRESSION: Small calcified and noncalcified pulmonary nodules or micronodules. According to the UPDATED 2017 Fleischner Society recommendations, the advised follow-up imaging for less than 6 mm nodule: Low risk, no chest CT follow-up and high risk, optional chest CT follow-up in one year. Bibasilar atelectasis and right upper lobe atelectasis. Small left pleural effusion. Fleischner guidelines were followed. Doppler Study Ultrasound 04/05/21 14:15 IMPRESSION: 7.5 x 4.5 x 5.7 cm solid left adnexal mass. Question 3.8 x 2.3 x 2.9 cm complex cystic right adnexal lesion. No evidence of torsion. Minimally thickened endometrium. Pelvis Ultrasound 04/05/21 14:15 IMPRESSION: 7.5 x 4.5 x 5.7 cm solid left adnexal mass. Question 3.8 x 2.3 x 2.9 cm complex cystic right adnexal lesion. No evidence of torsion. Minimally thickened endometrium. Assessment and Plan (1) Colitis: Status: Acute (2) Pelvic mass: Status: Acute (3) Weakness: Status: Acute 85F presented with diarrhea, weakness, confusion metabolic encephalopathy, weakness due to colitis rocephin, flagyl, ivf, gi eval pelvic mass follow up ca-125 htn hold lisinopril, low - normal bp hld statin dispo- likely to need rehab on discharge, will hold of on PT consult until feeling a little better dvt prophylaxis - lovenox DNR/DNI Quality Stroke Does the patient have a stroke diagnosis?: No VTE Prior VTE?: No VTE Risk Level:: Medical - moderate - high VTE Device Contraindication: Treatment Not Indicated VTE Drug Contraindication: N/A - Med Ordered
--- NOTE | 2021-04-05 16:26 | PM.GICN ---
History of Present Illness Data of Consult Service Date: 04/05/21 Requesting physician: Edson Schwartz Primary Care Provider: Karmen Tierney MD HPI Reason for consult: abnormal CT scan of the colon - Colitis 85 YF hypertension, hyperlipidemia and hearing loss brought to [facility] ED this am with weakness and confusion: HPI Narrative: 85-year-old female with mild dementia, HTN, HLD presents to the ER via EMS from home for evaluation of weakness and confusion for the last couple of days per family.? Family reports she is usually able to walk with a walker but has been unable to due to weakness.? She has had decreased p.o. intake.? They noticed that she has had very foul-smelling urine and concern for a UTI. She also has had very watery and foul smelling diarrhea for the last 7 days. She denies abdominal pain.? Patient has no complaints on arrival aside from some generalized weakness.? She knows it is 2020 but thinks we just celebrated [employer] [place] Day.? She denies any pain, nausea, vomiting, shortness of breath.? She was hypoxic for EMS in the high 80s.? On arrival here SpO2 89-90% on room air so was placed on 2 L nasal cannula with improvement to 99%.? She denies any shortness of breath or cough.? She denies dysuria. Unable to obtain hx from the patient since she has some confusion. IMAGING STUDIES: 04/05/[address] SCAN SHOWED (personally reviewed with Radiology): Dilated colon down to the rectum. Large amount of stool in the proximal colon. The distal colon appears fluid-filled and there is question of mild bowel wall thickening of the distal left and sigmoid colon/mild colitis and changes in the mesentery. Colonic ileus and distal obstruction should be considered. Imaging follow-up recommended. Normal caliber small bowel. Left inguinal hernia containing small bowel. No evidence of obstruction. Small umbilical hernia containing fat and right inguinal hernia containing fat and small amount of fluid. Gallstones. 4.5 x 7 x 8.5 cm left pelvic mass probably representing an adnexal mass. This could be better evaluated with pelvic ultrasound. 04/05/21 PELVIC US SHOWED: 7.5 x 4.5 x 5.7 cm solid left adnexal mass. Question 3.8 x 2.3 x 2.9 cm complex cystic right adnexal lesion. No evidence of torsion. Minimally thickened endometrium. Review of Systems Review of Systems: Not obtainable since patient is confused. Neurologic: Reports confusion Psychiatric: Psychiatric: Reports confusion [facility] Past Medical History Medical History Dyslipidemia Fall Hearing loss Hypertension Family History Family History Father No problems noted. Mother CAD (coronary artery disease) Surgical History Surgical History History of arthroplasty of left ankle Social History Social History Alcohol intake: never Patient Tobacco Use Status: Never used Tobacco Use of substances other than those prescribed or required for medical reasons: No Advance Directives: Yes Advance Directives on File: Yes Advance Directives Date on File: 04/05/21 Meds Allergies Allergy/AdvReac Type Severity Reaction Status Date / Time novacaine Allergy Intermediate Dizziness Uncoded 08/11/20 14:11 Active Medications: Current Medications Atorvastatin Calcium (Atorvastatin Calcium 20 Mg Tablet) 20 mg PO DAILY [facility] Enoxaparin Sodium (Enoxaparin Sodium 40 Mg/0.4 Ml Syringe) 40 mg SUBCUT Q24H [facility] Lactated Ringer's (Lr) 1,000 mls @ 80 mls/hr IVCONT .[id number] [facility] Ceftriaxone Sodium 1 gm/ (Sodium Chloride) 50 mls @ 100 mls/hr IV Q24H [facility] Metronidazole (Flagyl) 500 mg in 100 mls @ 100 mls/hr IV Q8H [facility] Pharmacy Consult (Consult Rx Perform Med Rec) 1 each MISCELLANE ONCE PRN PRN Reason: Consult order Sodium Chloride (0.9 % Sodium Chloride Flush 3 Ml Syringe) 3 ml IVFLUSH QSHIFT [facility] Home Medications Medication Instructions Recorded Confirmed Last Taken Type lisinopril 20 mg tablet 1 tab PO DAILY 04/05/21 04/05/21 04/04/21 History Physical Exam Vital Signs: Vital Signs: Last Vital Signs Temp 98.0 F 04/05/21 14:26 Pulse 82 04/05/21 14:26 Resp 18 04/05/21 14:26 BP 116/51 L 04/05/21 14:26 Pulse Ox 96 04/05/21 14:26 Body Mass Index 24.0 Const: General: no acute distress, confusion and ill appearing Nutritional Appearance: average body habitus Orientation/consciousness: confusion Limitations: no limitations HENMT: Head: Yes normal to inspection Ears: hearing grossly normal bilaterally Mouth: Normal oral and palatal mucosa present Eyes: Sclerae: sclerae normal Pupils: Equal, round and reactive pupils present Neck: Neck: Yes normal visual inspection Chest: Chest palpation & inspection: normal inspection of the chest Resp: Effort & Inspection: normal respiratory effort Auscultation: clear to auscultation bilaterally Cardio: Palpation: normal PMI Rate: regular rate Rhythm: regular rhythm Heart sounds: S1 normal heart sound present, S2 normal heart sound present and no murmurs GI: Palpation (GI): Soft to palpation, nontender and No hepatosplenomegaly present Auscultation: normal bowel sounds Rectal Exam - Female: deferred Skin: General skin exam: no rashes or lesions noted Neuro: General: gait normal, moves all extremities and confusion Cranial nerves: Yes Equal, round and reactive pupils present Extrem: General: Yes pedal edema Psych: Appearance: grossly normal Mental Status: mental status grossly normal Results Labs CBC & Chem 7: 04/05/21 09:15 04/05/21 09:15 Labs: Short CBC 04/05/21 Range/Units 09:15 WBC 8.1 (4.8-10.8) X10*3/uL Hgb 12.2 (12.0-16.0) g/dl Hct 36.8 L (37.0-47.0) % Plt Count 235 (160-400) X10*3/uL BMP 04/05/21 09:15 Sodium 137 Potassium 3.9 Chloride 103 Carbon Dioxide 26 BUN 25 H Creatinine 0.79 Calcium 8.5 Liver Function 04/05/21 Range/Units 09:15 Total Bilirubin 0.9 (0.0-1.0) mg/dL Direct Bilirubin 0.4 (0.0-0.5) mg/dL AST 19 (5-31) U/L ALT 17 (0-31) U/L Alkaline Phosphatase 76 (39-117) U/L Albumin 3.4 L (3.5-5.0) g/dL Urine 04/05/21 Range/Units 09:56 Urine Color YELLOW Urine Appearance CLEAR Urine pH 5.5 (5.0-8.0) Ur Specific [place] 1.020 (1.005-1.025) Urine Protein NEG (NEG-TRACE) MG/DL Urine Glucose (UA) NEG (NEG) MG/DL Assessment and Plan (1) Watery diarrhea: Status: Acute (2) Abnormal CT scan, colon: Status: Acute (3) Colitis: Status: Acute 85 YF hypertension, hyperlipidemia and hearing loss brought to [facility] ED this am with weakness and confusion for the past few days.? Family noted that pt had watery diarrhea and foul-smelling urine ABDOMINAL CT scan showed dilated colon down to the cecum with large amount of stool in the proximal colon. Distal colon appeared fluid-filled with a question of mild bowel wall thickening of the distal left and sigmoid colon and changes in the mesentery. A 4.5 x 7 x 8.5 cm left pelvic/adnexal mass. Pt likely has infectious colitis associated with possible superimposed ischemic colitis due to dehydration. RECOMMENDATIONS: 1. Check stool studies for leukocytes, cultures and C diff. 2. If stool cultures are negative, pt can be scheduled for a flexible sigmoidoscopy for follow-up of ? colitis. Dr Silva is early intervention school psychologist for [facility] tomorrow. Procedures Date of Service Date of Service: 04/05/21
[2021-04-05] MEDS: Lactated Ringers 1,000 ML 80 ML IVCONT (16:45)
[2021-04-05] MEDS: Enoxaparin Sodium 40 MG/0.4 ML SYRINGE SUBCUT (17:39)
[2021-04-05 19:25] VITALS: BP 98/47; PULSE 91; RESP 12; O2SAT 98
[2021-04-05 23:11] VITALS: BP 95/37; PULSE 81; RESP 16; O2SAT 95
[2021-04-06] MEDS: Lactated Ringers 1,000 ML 80 ML IVCONT ×2 (05:00→18:36)
[2021-04-06 05:54] VITALS: BP 120/58; PULSE 76; RESP 16; O2SAT 92
[2021-04-06] MEDS: metroNIDAZOLE/NS 500 MG/100 ML PIGGYBACK 100 MG IV ×3 (06:26→21:15)
[2021-04-06 06:54] LABS: Anion Gap 12 (12-20); Blood Urea Nitrogen 18 mg/dL (9-16); Calcium 7.9 mg/dL (8.4-10.2); Carbon Dioxide 22 mmol/L (22-29); Chloride 109 mmol/L (96-108); Creatinine Clr Calc Pharmacy 57.1; Estimated Glomerular Filt Rate > 60; Glucose Fasting 94 mg/dL (60-99); Magnesium 1.6 mg/dL (1.6-2.6); Potassium 3.2 mmol/L (3.3-5.1); Sodium 140 mmol/L (135-145)
[2021-04-06 07:04] LABS: Hematocrit 31.9 % (37.0-47.0); Hemoglobin 10.6 g/dl (12.0-16.0); Mean Corpuscular HGB Conc 33.2 g/dl (31.0-35.0); Mean Corpuscular Hemoglobin 30.5 pg (27.0-33.0); Mean Corpuscular Volume 91.9 fL (80.0-98.0); Mean Platelet Volume 9.6 fL (9.4-12.3); Platelet Count 222 X10*3/uL (160-400); Red Blood Count 3.47 X10*6/uL (4.20-5.50); Red Cell Distribution Width 12.9 % (11.0-16.0); White Blood Count 6.4 X10*3/uL (4.8-10.8)
--- NOTE | 2021-04-06 07:19 | PC.NURSE ---
sleeping and easily woken, nad, no complaints
[2021-04-06] MEDS: Atorvastatin Calcium 20 MG TABLET PO (09:28)
[2021-04-06] MEDS: cefTRIAXone sodium 1 GM in 0.9 % Sodium Chloride 50 ML IV (09:29)
[2021-04-06 09:31] VITALS: BP 132/56; PULSE 88; RESP 19; O2SAT 98
[2021-04-06] MEDS: 0.9 % Sodium Chloride Flush 3 ML SYRINGE IVFLUSH (09:33)
--- NOTE | 2021-04-06 09:43 | MHC.CM.PN ---
PATIENT HAS RECENTLY MOVED INTO HER SON AND [id number] HOME. FAMILY PROVIDES TRANSPORTATION.WHERE NEEDED. HCP IS ON FILE AND VERIFIED PATIENT HAS BEEN COVID VACCINATED AND IS HOPING FOR HER BOOSTER SOON. PATIENT RELIES ON A CANE AND A WALKER. SHE HAS NO OTHER SERVICES IMM 04/06 IN CHART
[2021-04-06 12:00] VITALS: BP 138/87; PULSE 88; RESP 16; TEMP 36.6; O2SAT 95
--- NOTE | 2021-04-06 12:12 | P.PNIM_ITS ---
Subjective Subjective Date of Service: 04/06/21 Interval History: the patient was seen and evaluated this morning Laying in bed, feels tired overall but reports pain has improved Had bowel movement overnight Denies any fever, chills or shortness of breath No reported other overnight events. Systemic review: No fever, chills or weakness No chest pain, palpitation No shortness of breath or coughing Infrequent mild abdominal pain, no reporting nausea, had bowel movement No urinary symptoms Denies rash or wounds Physical Exam Vital Signs: Vital Signs: Last Vital Signs Temp 97.9 F 04/06/21 12:00 Pulse 88 04/06/21 12:00 Resp 16 04/06/21 12:00 BP 138/87 04/06/21 12:00 Pulse Ox 95 04/06/21 12:00 BMI result Body Mass Index 24.0 Const: Other: Constitutional : Alert, interactive, not in distress Neck : Normal inspection, Supple Cardiovascular : RRR, S1 S2, no lower extremity edema Respiratory : Good bilateral air entry, no crackles, wheezes or rhonchi Gastrointestinal: soft, lax, Normal bowel sounds, Non tender Skin : Warm, Dry Neurological : Alert & oriented to self, mildly confused, No focal deficit Objective Data Active Medications Atorvastatin Calcium (Atorvastatin Calcium 20 Mg Tablet) 20 mg PO DAILY [facility] Last Admin: 04/06/21 09:28 Dose: 20 mg Documented by: ANNA Enoxaparin Sodium (Enoxaparin Sodium 40 Mg/0.4 Ml Syringe) 40 mg SUBCUT Q24H [facility] Last Admin: 04/05/21 17:39 Dose: 40 mg Documented by: LAWRENCE Lactated Ringer's (Lr) 1,000 mls @ 80 mls/hr IVCONT .[id number] [facility] Last Admin: 04/06/21 05:00 Dose: 80 mls/hr Documented by: MCTA Ceftriaxone Sodium 1 gm/ (Sodium Chloride) 50 mls @ 100 mls/hr IV Q24H [facility] Last Infusion: 04/06/21 12:05 Dose: 0 mls/hr Documented by: COTEMA Metronidazole (Flagyl) 500 mg in 100 mls @ 100 mls/hr IV Q8H [facility] Last Infusion: 04/06/21 12:05 Dose: 0 mls/hr Documented by: COTEMA Pharmacy Consult (Consult Rx Perform Med Rec) 1 each MISCELLANE ONCE PRN PRN Reason: Consult order Sodium Chloride (0.9 % Sodium Chloride Flush 3 Ml Syringe) 3 ml IVFLUSH QSHIFT [facility] Last Admin: 04/06/21 09:33 Dose: 3 ml Documented by: ANNA Labs CBC & Chem 7: 04/06/21 06:22 04/06/21 06:26 Labs: Laboratory Results - last 24 hr 04/05/21 04/06/21 04/06/21 15:26 06:22 06:26 MCV 91.9 MCH 30.5 MCHC 33.2 RDW 12.9 Plt Count 222 MPV 9.6 Absolute Nucleated RBC 0.000 Nucleated RBC % (auto) 0.0 Anion Gap 12 Estim Creat Clear Calc 57.1 Estimated GFR > 60 Fasting Glucose 94 Calcium 7.9 L D Magnesium 1.6 B-Natriuretic Peptide 182 H Microbiology Microbiology Results: Microbiology 04/05/21 09:40 Blood Culture - Preliminary Blood - Venous No growth after 24 hours. 04/05/21 09:15 Blood Culture - Preliminary Blood - Venous No growth after 24 hours. Assessment and Plan (1) Colitis: Status: Acute (2) Pelvic mass: Status: Acute (3) Weakness: Status: Acute (4) Metabolic encephalopathy: Status: Acute (5) Hypokalemia: Status: Acute Assessment and Plan: 85F presented with diarrhea, weakness, confusion metabolic encephalopathy Seems little better today Likely secondary to infection Treat underlying cause Recurrent reorientation colitis Pending blood cultures continue IV fluid GI input appreciated , stool studies for now If stool culture are negative patient can be scheduled for flexible sigmoidoscopy for outpatient follow-up Continue rocephin and Flagyl pelvic mass Reported on CT scan follow up ca-125 Hypokalemia Potassium of 3.2 to give replacement and repeat BMP htn hold lisinopril, low - normal bp hld statin dispo- to do PT evaluation dvt prophylaxis lovenox Quality Stroke Does the patient have a stroke diagnosis?: No VTE Prior VTE?: No VTE Risk Level:: Medical - moderate - high VTE Device Contraindication: Treatment Not Indicated VTE Drug Contraindication: N/A - Med Ordered
[2021-04-06] MEDS: Potassium Chloride/H20 10 MEQ/100 ML PIGGYBACK 100 MEQ IV (13:14)
[2021-04-06 15:09] VITALS: BP 138/74; PULSE 96; RESP 16; TEMP 36; O2SAT 95
[2021-04-06] MEDS: Enoxaparin Sodium 40 MG/0.4 ML SYRINGE SUBCUT (18:35)
[2021-04-06 19:35] VITALS: BP 145/76; PULSE 99; RESP 16; TEMP 36.6; O2SAT 98
[2021-04-07] VITALS: BP 122/76; PULSE 99; RESP 16; TEMP 37.3; O2SAT 92
[2021-04-07] MEDS: metroNIDAZOLE/NS 500 MG/100 ML PIGGYBACK 100 MG IV ×3 (05:40→21:31)
[2021-04-07 06:28] LABS: Hematocrit 31.7 % (37.0-47.0); Hemoglobin 10.3 g/dl (12.0-16.0); Mean Corpuscular HGB Conc 32.5 g/dl (31.0-35.0); Mean Corpuscular Hemoglobin 29.9 pg (27.0-33.0); Mean Corpuscular Volume 91.9 fL (80.0-98.0); Mean Platelet Volume 9.7 fL (9.4-12.3); Platelet Count 221 X10*3/uL (160-400); Red Blood Count 3.45 X10*6/uL (4.20-5.50); Red Cell Distribution Width 12.8 % (11.0-16.0); White Blood Count 6.9 X10*3/uL (4.8-10.8)
[2021-04-07 06:50] LABS: Anion Gap 13 (12-20); Blood Urea Nitrogen 13 mg/dL (9-16); Calcium 7.7 mg/dL (8.4-10.2); Carbon Dioxide 22 mmol/L (22-29); Chloride 108 mmol/L (96-108); Creatinine Clr Calc Pharmacy 56.2; Estimated Glomerular Filt Rate > 60; Glucose Random 113 mg/dL (60-115); Potassium 2.9 mmol/L (3.3-5.1); Sodium 140 mmol/L (135-145)
[2021-04-07 07:15] VITALS: BP 141/63; PULSE 84; RESP 16; TEMP 36.7; O2SAT 94
[2021-04-07 08:16] VITALS: BP 141/63; PULSE 84; O2SAT 94
--- NOTE | 2021-04-07 09:45 | P.PNIM_ITS ---
Subjective Subjective Date of Service: 04/07/21 Interval History: the patient was seen and evaluated this morning Laying in bed reports pain has improved but still there, still feeling tired with no energy Moving her bowels Denies any fever, chills or shortness of breath No reported other overnight events. Systemic review: No fever, chills or weakness No chest pain, palpitation No shortness of breath or coughing mild abdominal pain, no reporting nausea, had bowel movement No urinary symptoms Denies rash or wounds Physical Exam 2 Vital Signs: Vital Signs: Last Vital Signs Temp 98.0 F 04/07/21 07:15 Pulse 84 04/07/21 08:16 Resp 16 04/07/21 07:15 BP 141/63 H 04/07/21 08:16 Pulse Ox 94 04/07/21 08:16 BMI result Body Mass Index 24.0 Const: Other: Constitutional : Alert, interactive, not in distress Neck : Normal inspection, Supple Cardiovascular : RRR, S1 S2, no lower extremity edema Respiratory : Good bilateral air entry, no crackles, wheezes or rhonchi Gastrointestinal: soft, lax, Normal bowel sounds, Non tender Skin : Warm, Dry Neurological : Alert & oriented to self, mildly confused, No focal deficit Objective Data Active Medications Atorvastatin Calcium (Atorvastatin Calcium 20 Mg Tablet) 20 mg PO DAILY [facility] Last Admin: 04/06/21 09:28 Dose: 20 mg Documented by: ANNA Enoxaparin Sodium (Enoxaparin Sodium 40 Mg/0.4 Ml Syringe) 40 mg SUBCUT Q24H [facility] Last Admin: 04/06/21 18:35 Dose: 40 mg Documented by: COTEMA Lactated Ringer's (Lr) 1,000 mls @ 80 mls/hr IVCONT .[id number] [facility] Last Infusion: 04/07/21 06:43 Dose: 80 mls/hr Documented by: RIMA Ceftriaxone Sodium 1 gm/ (Sodium Chloride) 50 mls @ 100 mls/hr IV Q24H [facility] Last Infusion: 04/06/21 12:05 Dose: 0 mls/hr Documented by: KENTRELLEMA Metronidazole (Flagyl) 500 mg in 100 mls @ 100 mls/hr IV Q8H [facility] Last Infusion: 04/07/21 06:42 Dose: 0 mls/hr Documented by: HO.SEXK Pharmacy Consult (Consult Rx Perform Med Rec) 1 each MISCELLANE ONCE PRN PRN Reason: Consult order Potassium Chloride (Potassium Chloride Packet 20 Meq Packet) 40 meq PO Q4H [facility] Stop: 04/07/21 12:01 Sodium Chloride (0.9 % Sodium Chloride Flush 3 Ml Syringe) 3 ml IVFLUSH QSHIFT [facility] Last Admin: 04/07/21 08:28 Dose: Not Given Documented by: COTEMA Non-Admin Reason: IV Running Labs CBC & Chem 7: 04/07/21 06:10 04/07/21 06:10 Labs: Laboratory Results - last 24 hr 04/07/21 04/07/21 06:10 06:10 MCV 91.9 MCH 29.9 MCHC 32.5 RDW 12.8 Plt Count 221 MPV 9.7 Absolute Nucleated RBC 0.000 Nucleated RBC % (auto) 0.0 Anion Gap 13 Estim Creat Clear Calc 56.2 Estimated GFR > 60 Random Glucose 113 Calcium 7.7 L Microbiology Microbiology Results: Microbiology 04/05/21 14:22 Stool Culture - Final Stool 04/05/21 09:40 Blood Culture - Preliminary Blood - Venous No growth after 24 hours. 04/05/21 09:15 Blood Culture - Preliminary Blood - Venous No growth after 24 hours. Assessment and Plan (1) Hypokalemia: Status: Acute (2) Metabolic encephalopathy: Status: Acute (3) Colitis: Status: Acute Assessment and Plan: 85F presented with diarrhea, weakness, confusion metabolic encephalopathy Improving slowly, fluctuating during the day Likely secondary to infection Treat underlying cause Recurrent reorientation colitis Pending final blood cultures continue IV fluid GI input appreciated , stool studies for now If stool culture are negative patient can be scheduled for flexible sigmoidoscopy for outpatient follow-up Continue rocephin and Flagyl pelvic mass Reported on CT scan follow up ca-125 Hypokalemia Potassium of 2.9 to give replacement p.o. and repeat BMP htn hold lisinopril, stable blood pressure hld statin dispo- PT evaluation dvt prophylaxis lovenox Quality Stroke Does the patient have a stroke diagnosis?: No VTE Prior VTE?: No VTE Risk Level:: Medical - moderate - high VTE Device Contraindication: Treatment Not Indicated VTE Drug Contraindication: N/A - Med Ordered
[2021-04-07] MEDS: Atorvastatin Calcium 20 MG TABLET PO (09:59)
[2021-04-07] MEDS: Potassium Chloride Packet 20 MEQ PACKET 40 MEQ PO ×2 (09:59→14:21)
[2021-04-07] MEDS: cefTRIAXone sodium 1 GM in 0.9 % Sodium Chloride 50 ML IV (09:59)
[2021-04-07] MEDS: Lactated Ringers 1,000 ML 80 ML IVCONT (10:00)
[2021-04-07 16:00] VITALS: BP 142/84; PULSE 91; RESP 16; TEMP 36.3; O2SAT 95
[2021-04-07] MEDS: Enoxaparin Sodium 40 MG/0.4 ML SYRINGE SUBCUT (18:09)
[2021-04-08] VITALS: BP 130/61; PULSE 81; RESP 16; TEMP 36.5; O2SAT 95
[2021-04-08] MEDS: Lactated Ringers 1,000 ML 80 ML IVCONT (01:12)
[2021-04-08] MEDS: metroNIDAZOLE/NS 500 MG/100 ML PIGGYBACK 100 MG IV ×2 (05:33→15:25)
[2021-04-08 06:25] LABS: Hematocrit 30.4 % (37.0-47.0); Hemoglobin 9.9 g/dl (12.0-16.0); Mean Corpuscular HGB Conc 32.6 g/dl (31.0-35.0); Mean Corpuscular Hemoglobin 29.9 pg (27.0-33.0); Mean Corpuscular Volume 91.8 fL (80.0-98.0); Mean Platelet Volume 9.6 fL (9.4-12.3); Platelet Count 221 X10*3/uL (160-400); Red Blood Count 3.31 X10*6/uL (4.20-5.50); Red Cell Distribution Width 12.9 % (11.0-16.0); White Blood Count 7.1 X10*3/uL (4.8-10.8)
[2021-04-08 06:27] LABS: CA-125 30 U/mL (<35)
[2021-04-08 06:33] LABS: Anion Gap 10 (12-20); Blood Urea Nitrogen 9 mg/dL (9-16); Calcium 7.5 mg/dL (8.4-10.2); Carbon Dioxide 24 mmol/L (22-29); Chloride 110 mmol/L (96-108); Creatinine Clr Calc Pharmacy 62.2; Estimated Glomerular Filt Rate > 60; Glucose Random 91 mg/dL (60-115); Potassium 3.2 mmol/L (3.3-5.1); Sodium 141 mmol/L (135-145)
[2021-04-08 08:00] VITALS: BP 166/74; PULSE 79; RESP 18; TEMP 36.6; O2SAT 94
[2021-04-08] MEDS: Potassium Chloride Packet 20 MEQ PACKET 40 MEQ PO (09:14)
[2021-04-08] MEDS: Atorvastatin Calcium 20 MG TABLET PO (09:14)
[2021-04-08] MEDS: cefTRIAXone sodium 1 GM in 0.9 % Sodium Chloride 50 ML IV (09:14)
[2021-04-08] MEDS: 0.9 % Sodium Chloride Flush 3 ML SYRINGE IVFLUSH ×3 (09:15→22:25)
[2021-04-08 10:41] LABS: CDiff Gene PCR POSITIVE (Negative)
--- NOTE | 2021-04-08 10:57 | HO.PM.IMPN ---
Subjective Subjective Date of Service: 04/08/21 Interval History: the patient was seen and evaluated this morning Laying in bed, feels little better today Having 2 bowel movements a day, soft Denies any fever, chills or shortness of breath No reported other overnight events. Systemic review: No fever, chills or weakness No chest pain, palpitation No shortness of breath or coughing No abdominal pain, no reporting nausea, had bowel movement No urinary symptoms Denies rash or wounds Physical Exam Vital Signs: Vital Signs: Last Vital Signs Temp 97.8 F 04/08/21 08:00 Pulse 79 04/08/21 08:00 Resp 18 04/08/21 08:00 BP 166/74 H 04/08/21 08:00 Pulse Ox 94 04/08/21 08:00 BMI result Body Mass Index 24.0 Const: Other: Constitutional : Alert, interactive, not in distress Neck : Normal inspection, Supple Cardiovascular : RRR, S1 S2, no lower extremity edema Respiratory : Good bilateral air entry, no crackles, wheezes or rhonchi Gastrointestinal: soft, lax, Normal bowel sounds, Non tender Skin : Warm, Dry Neurological : Alert & oriented to self, No focal deficit Objective Data Active Medications Atorvastatin Calcium (Atorvastatin Calcium 20 Mg Tablet) 20 mg PO DAILY [facility] Last Admin: 04/08/21 09:14 Dose: 20 mg Documented by: JENNIFER Enoxaparin Sodium (Enoxaparin Sodium 40 Mg/0.4 Ml Syringe) 40 mg SUBCUT Q24H [facility] Last Admin: 04/07/21 18:09 Dose: 40 mg Documented by: COTEMA Ceftriaxone Sodium 1 gm/ (Sodium Chloride) 50 mls @ 100 mls/hr IV Q24H [facility] Last Infusion: 04/08/21 10:14 Dose: 0 mls/hr Documented by: JENNIFER Metronidazole (Flagyl) 500 mg in 100 mls @ 100 mls/hr IV Q8H [facility] Last Infusion: 04/08/21 06:37 Dose: 0 mls/hr Documented by: DOMITILA Pharmacy Consult (Consult Rx Perform Med Rec) 1 each MISCELLANE ONCE PRN PRN Reason: Consult order Sodium Chloride (0.9 % Sodium Chloride Flush 3 Ml Syringe) 3 ml IVFLUSH QSHIFT [facility] Last Admin: 04/08/21 09:15 Dose: 3 ml Documented by: JENNIFER Labs CBC & Chem 7: 04/08/21 06:00 04/08/21 06:00 Labs: Laboratory Results - last 24 hr 04/06/21 04/08/21 04/08/21 06:22 06:00 06:00 MCV 91.8 MCH 29.9 MCHC 32.6 RDW 12.9 Plt Count 221 MPV 9.6 Absolute Nucleated RBC 0.000 Nucleated RBC % (auto) 0.0 Anion Gap 10 L Estim Creat Clear Calc 62.2 Estimated GFR > 60 Random Glucose 91 Calcium 7.5 L CA 125 Antigen 30 C. difficile Tox B Gene 04/08/21 Unknown MCV MCH MCHC RDW Plt Count MPV Absolute Nucleated RBC Nucleated RBC % (auto) Anion Gap Estim Creat Clear Calc Estimated GFR Random Glucose Calcium CA 125 Antigen C. difficile Tox B Gene POSITIVE A* Microbiology Microbiology Results: Microbiology 04/05/21 09:40 Blood Culture - Preliminary Blood - Venous No growth after 48 hours. 04/05/21 09:15 Blood Culture - Preliminary Blood - Venous No growth after 48 hours. 04/05/21 14:22 Stool Culture - Final Stool Assessment and Plan (1) Hypokalemia: Status: Acute (2) Metabolic encephalopathy: Status: Acute (3) Watery diarrhea: Status: Acute (4) Colitis: Status: Acute Assessment and Plan: 85F presented with diarrhea, weakness, confusion C diff infection Positive test, pending toxins Start vancomycin for total of 14 days metabolic encephalopathy Improving slowly, fluctuating during the day Likely secondary to infection Treat underlying cause Recurrent reorientation colitis Negative blood cultures Discontinue IV fluid GI input appreciated , stool studies for now Discontinue rocephin and Flagyl pelvic mass Reported on CT scan Ultrasound showed 7.5 x 4.5 x 5.7 cm solid left adnexal mass Low ca-125 reading to be followed as outpatient with PCP Hypokalemia Potassium of 3.1 to give replacement p.o. and repeat BMP htn hold lisinopril, stable blood pressure hld statin dispo- PT evaluation dvt prophylaxis lovenox Quality Stroke Does the patient have a stroke diagnosis?: No VTE Prior VTE?: No VTE Risk Level:: Medical - moderate - high VTE Device Contraindication: Treatment Not Indicated VTE Drug Contraindication: N/A - Med Ordered
[2021-04-08 11:29] VITALS: BP 166/74; PULSE 79; O2SAT 94
--- NOTE | 2021-04-08 11:47 | MHC.CM.PN ---
Addendum entered by Shantell Victoria RN 04/08/21 12:25: CM RECEIVED MRESPONSE FROM [facility] AND THEY CAN OFFER A BED BUT NOT UNTIL NEXT WEEK, CM WILL FOLOOW-UP ON SUNDAY IF PT IS STILL HERE, [facility] ALSO OFFERING A BED AND CM STILL AWAITING CALL BACK FROM FAMILY. Original Note: EMR REVIEWED, PT TESTED POSITIVE FOR CDIF TODAY, PT CONT'S TO HAVE DIARRHEA AND IS VERY WEAK, CM DID SPEAK W/FAMILY WHO ORIGINALLY WANTED TO TAKE HER HOME W/SERVICES AND PROVIDE 24HR CARE HOWEVER THEY ARE UNABLE TO PHYSICALLY LIFT/TRANSFER HER AND WOULD LIKE STR, CM HAS EMAILED SON/HCP AND DTR-IN-LAW LIST OF SNF'S, PLACEMENT WILL BE DIFFICULT D/T CDIF+ AND REFERRAL PLACED TO [facility], [facility] AND FAMILY WILL GET BACK TO CM WITH ADDITIONAL PREFERENCES. D/C PLAN: STR, ACTION FOR BLS TRANSPORT
[2021-04-08 12:07] LABS: CDiff Toxin Positive (Negative)
[2021-04-08 12:25] LABS: CDIFF Internal ctrl Dots and bkg OK (V)
[2021-04-08] MEDS: vancomycin HCL 125 MG CAPSULE PO ×2 (12:43→18:52)
[2021-04-08 15:13] VITALS: BP 131/68; PULSE 87; RESP 16; TEMP 36.6; O2SAT 95
[2021-04-08] MEDS: Enoxaparin Sodium 40 MG/0.4 ML SYRINGE SUBCUT (18:52)
[2021-04-08 19:47] VITALS: BP 139/69; PULSE 85; RESP 16; TEMP 36.5; O2SAT 96
[2021-04-08 23:28] VITALS: BP 148/77; PULSE 84; RESP 17; TEMP 36.4; O2SAT 94
[2021-04-09] MEDS: vancomycin HCL 125 MG CAPSULE PO ×4 (00:44→18:37)
[2021-04-09] MEDS: metroNIDAZOLE/NS 500 MG/100 ML PIGGYBACK 100 MG IV ×2 (00:44→05:52)
[2021-04-09 07:05] LABS: Anion Gap 9 (12-20); Blood Urea Nitrogen 9 mg/dL (9-16); Carbon Dioxide 25 mmol/L (22-29); Chloride 108 mmol/L (96-108); Creatinine Clr Calc Pharmacy 60.1; Estimated Glomerular Filt Rate > 60; Glucose Random 106 mg/dL (60-115); Potassium 3.3 mmol/L (3.3-5.1); Sodium 139 mmol/L (135-145)
[2021-04-09 07:50] VITALS: BP 187/87; PULSE 81; RESP 18; TEMP 36.3; O2SAT 95
--- NOTE | 2021-04-09 09:07 | P.PNIM_ITS ---
Subjective Subjective Date of Service: 04/09/21 Interval History: the patient was seen and evaluated this morning Laying in bed, feels improvement and decrease pain Still having loose bowel movement Denies any fever, chills or shortness of breath No reported other overnight events. Systemic review: No fever, chills or weakness No chest pain, palpitation No shortness of breath or coughing No abdominal pain, no reporting nausea, had bowel movement No urinary symptoms Denies rash or wounds Physical Exam Vital Signs: Vital Signs: Last Vital Signs Temp 97.3 F 04/09/21 07:50 Pulse 81 04/09/21 07:50 Resp 18 04/09/21 07:50 BP 187/87 H 04/09/21 07:50 Pulse Ox 95 04/09/21 07:50 BMI result Body Mass Index 24.0 Const: Other: Constitutional : Alert, interactive, not in distress Neck : Normal inspection, Supple Cardiovascular : RRR, S1 S2, no lower extremity edema Respiratory : Good bilateral air entry, no crackles, wheezes or rhonchi Gastrointestinal: soft, lax, Normal bowel sounds, mild tenderness with deep palpation to left lower quadrant Skin : Warm, Dry Neurological : Alert & oriented to self, No focal deficit Objective Data Active Medications Atorvastatin Calcium (Atorvastatin Calcium 20 Mg Tablet) 20 mg PO DAILY [facility] Last Admin: 04/08/21 09:14 Dose: 20 mg Documented by: JENNIFER Enoxaparin Sodium (Enoxaparin Sodium 40 Mg/0.4 Ml Syringe) 40 mg SUBCUT Q24H [facility] Last Admin: 04/08/21 18:52 Dose: 40 mg Documented by: JENNIFER Pharmacy Consult (Consult Rx Perform Med Rec) 1 each MISCELLANE ONCE PRN PRN Reason: Consult order Sodium Chloride (0.9 % Sodium Chloride Flush 3 Ml Syringe) 3 ml IVFLUSH QSHIFT [facility] Last Admin: 04/08/21 22:25 Dose: 3 ml Documented by: WING Vancomycin HCl (Vancomycin Hcl 125 Mg Capsule) 125 mg PO Q6H [facility] Last Admin: 04/09/21 05:52 Dose: 125 mg Documented by: WING Labs CBC & Chem 7: 04/08/21 06:00 04/09/21 06:11 Labs: Laboratory Results - last 24 hr 04/08/21 04/09/21 Unknown 06:11 Anion Gap 9 L Estim Creat Clear Calc 60.1 Estimated GFR > 60 Random Glucose 106 Calcium 8.0 L D C. difficile Tox B Gene POSITIVE A* C. difficile Toxin A&B Positive A* C. difficile Interpret SEE NOTE Assessment and Plan (1) Clostridium difficile colitis: Status: Acute (2) Hypokalemia: Status: Acute (3) Metabolic encephalopathy: Status: Acute Assessment and Plan: 85F presented with diarrhea, weakness, confusion C diff colitis Positive toxin Mild improvement since yesterday Negative blood cultures GI input appreciated , stool studies for now Discontinue rocephin and Flagyl Continue vancomycin for total of 2/14 days metabolic encephalopathy Improving Likely secondary to infection Treat underlying cause Recurrent reorientation pelvic mass Reported on CT scan Ultrasound showed 7.5 x 4.5 x 5.7 cm solid left adnexal mass Low ca-125 reading to be followed as outpatient with PCP Hypokalemia Replaced htn hold lisinopril, stable blood pressure hld statin dispo- PT evaluation dvt prophylaxis lovenox Quality Stroke Does the patient have a stroke diagnosis?: No VTE Prior VTE?: No VTE Risk Level:: Medical - moderate - high VTE Device Contraindication: Treatment Not Indicated VTE Drug Contraindication: N/A - Med Ordered
[2021-04-09] MEDS: 0.9 % Sodium Chloride Flush 3 ML SYRINGE IVFLUSH ×2 (09:13→16:40)
[2021-04-09] MEDS: Atorvastatin Calcium 20 MG TABLET PO (09:13)
[2021-04-09 14:06] VITALS: BP 130/82
[2021-04-09 15:42] VITALS: BP 155/84; PULSE 91; RESP 18; TEMP 36.4; O2SAT 95
[2021-04-09] MEDS: Enoxaparin Sodium 40 MG/0.4 ML SYRINGE SUBCUT (18:37)
[2021-04-10] VITALS: BP 169/89; PULSE 85; RESP 17; TEMP 36.3; O2SAT 95
[2021-04-10] MEDS: vancomycin HCL 125 MG CAPSULE PO ×4 (00:47→17:56)
[2021-04-10] MEDS: 0.9 % Sodium Chloride Flush 3 ML SYRINGE IVFLUSH ×3 (00:58→15:22)
[2021-04-10 06:11] LABS: Hematocrit 32.8 % (37.0-47.0); Hemoglobin 10.9 g/dl (12.0-16.0); Mean Corpuscular HGB Conc 33.2 g/dl (31.0-35.0); Mean Corpuscular Hemoglobin 30.6 pg (27.0-33.0); Mean Corpuscular Volume 92.1 fL (80.0-98.0); Mean Platelet Volume 9.3 fL (9.4-12.3); Platelet Count 250 X10*3/uL (160-400); Red Blood Count 3.56 X10*6/uL (4.20-5.50); White Blood Count 7.6 X10*3/uL (4.8-10.8)
[2021-04-10 06:39] LABS: Anion Gap 11 (12-20); Blood Urea Nitrogen 10 mg/dL (9-16); Calcium 7.9 mg/dL (8.4-10.2); Carbon Dioxide 24 mmol/L (22-29); Chloride 109 mmol/L (96-108); Creatinine Clr Calc Pharmacy 59.1; Estimated Glomerular Filt Rate > 60; Glucose Random 96 mg/dL (60-115); Potassium 3.4 mmol/L (3.3-5.1); Sodium 141 mmol/L (135-145)
[2021-04-10 07:22] VITALS: BP 156/76; PULSE 81; RESP 17; TEMP 36.4; O2SAT 97
[2021-04-10] MEDS: Atorvastatin Calcium 20 MG TABLET PO (11:13)
--- NOTE | 2021-04-10 11:14 | HO.PM.IMPN ---
Subjective Subjective Date of Service: 04/10/21 Interval History: the patient was seen and evaluated this morning Laying in bed, feels better 1 loose bowel movement yesterday Denies any fever, chills or shortness of breath No reported other overnight events. Systemic review: No fever, chills or weakness No chest pain, palpitation No shortness of breath or coughing No abdominal pain, no reporting nausea, had bowel movement No urinary symptoms Denies rash or wounds Physical Exam Vital Signs: Vital Signs: Last Vital Signs Temp 97.6 F 04/10/21 07:22 Pulse 81 04/10/21 07:22 Resp 17 04/10/21 07:22 BP 156/76 H 04/10/21 07:22 Pulse Ox 97 04/10/21 07:22 BMI result Body Mass Index 24.0 Const: Other: Constitutional : Alert, interactive, not in distress Neck : Normal inspection, Supple Cardiovascular : RRR, S1 S2, no lower extremity edema Respiratory : Good bilateral air entry, no crackles, wheezes or rhonchi Gastrointestinal: soft, lax, Normal bowel sounds, no tenderness Skin : Warm, Dry Neurological : Alert & oriented to self, No focal deficit Objective Data Active Medications Atorvastatin Calcium (Atorvastatin Calcium 20 Mg Tablet) 20 mg PO DAILY [facility] Last Admin: 04/10/21 11:13 Dose: 20 mg Documented by: JOHN Enoxaparin Sodium (Enoxaparin Sodium 40 Mg/0.4 Ml Syringe) 40 mg SUBCUT Q24H [facility] Last Admin: 04/09/21 18:37 Dose: 40 mg Documented by: DEBBIE Pharmacy Consult (Consult Rx Perform Med Rec) 1 each MISCELLANE ONCE PRN PRN Reason: Consult order Sodium Chloride (0.9 % Sodium Chloride Flush 3 Ml Syringe) 3 ml IVFLUSH QSHIFT [facility] Last Admin: 04/10/21 11:13 Dose: 3 ml Documented by: JOHN Vancomycin HCl (Vancomycin Hcl 125 Mg Capsule) 125 mg PO Q6H [facility] Last Admin: 04/10/21 11:13 Dose: 125 mg Documented by: JOHN Labs CBC & Chem 7: 04/10/21 06:01 04/10/21 06:01 Labs: Laboratory Results - last 24 hr 04/10/21 04/10/21 06:01 06:01 MCV 92.1 MCH 30.6 MCHC 33.2 RDW 13.0 Plt Count 250 MPV 9.3 L Absolute Nucleated RBC 0.000 Nucleated RBC % (auto) 0.0 Anion Gap 11 L Estim Creat Clear Calc 59.1 Estimated GFR > 60 Random Glucose 96 Calcium 7.9 L Microbiology Microbiology Results: Microbiology 04/08/21 Unknown Stool Culture - Preliminary Stool Culture in progress. Assessment and Plan (1) Clostridium difficile colitis: Status: Acute (2) Metabolic encephalopathy: Status: Acute (3) Hypokalemia: Status: Acute Assessment and Plan: 85F presented with diarrhea, weakness, confusion C diff colitis Positive toxin Mild improvement since yesterday Negative blood cultures GI input appreciated , stool studies Continue vancomycin for total of 3/14 days metabolic encephalopathy Improving Likely secondary to infection Treat underlying cause Recurrent reorientation pelvic mass Reported on CT scan Ultrasound showed 7.5 x 4.5 x 5.7 cm solid left adnexal mass Low ca-125 reading to be followed as outpatient with PCP Hypokalemia Replaced htn hold lisinopril, stable blood pressure hld statin dispo- pending placement to SNF dvt prophylaxis lovenox Quality Stroke Does the patient have a stroke diagnosis?: No VTE Prior VTE?: No VTE Risk Level:: Medical - moderate - high VTE Device Contraindication: Treatment Not Indicated VTE Drug Contraindication: N/A - Med Ordered
[2021-04-10 15:56] VITALS: BP 164/72; PULSE 89; RESP 16; TEMP 36.3; O2SAT 95
[2021-04-10] MEDS: Enoxaparin Sodium 40 MG/0.4 ML SYRINGE SUBCUT (17:56)
[2021-04-11] VITALS: BP 145/67; PULSE 73; RESP 16; TEMP 36.2; O2SAT 97
[2021-04-11] MEDS: 0.9 % Sodium Chloride Flush 3 ML SYRINGE IVFLUSH ×2 (00:15→10:14)
[2021-04-11] MEDS: vancomycin HCL 125 MG CAPSULE PO ×2 (06:17→11:16)
[2021-04-11 07:48] VITALS: BP 168/90; PULSE 85; RESP 18; TEMP 36.8; O2SAT 98
[2021-04-11] MEDS: Atorvastatin Calcium 20 MG TABLET PO (10:14)
--- NOTE | 2021-04-11 11:30 | MHC.CM.PN ---
Addendum entered by Shantell Victoria RN 04/11/21 12:05: CM REACHED OUT TO PT'S HCP/[facility] AND SPOKE W/DTR IN LAW, DTR IN LAW REPORTS FAMILY IS AGREEABLE TO [facility], CM WILL LET [facility] KNOW VIA [employer]. Original Note: PT CLEARED FOR D/C TODAY, CM CONTACTED [facility]IA [employer] AND THEY DO NOT HAVE A BED FOR PT, CM WILL MEET W/PT AND CONTACT FAMILY IF NEEDED TO DISCUSS OPTIONS, [facility] IS OFFEREING A BED FOR TODAY.
--- NOTE | 2021-04-11 12:00 | P.DS_ITS ---
DS: Providers Provider Date of Service: 04/11/21 Date of admission: 04/05/21 16:04 Primary care physician: Karmen Tierney MD Consults: 04/05/21 15:54 Consult to Gastroenterology Routine Consulting Provider: Oliver Post Reason for consultation: colitis DS: Diagnosis Discharge Diagnosis (1) Clostridium difficile colitis: Status: Acute (2) Metabolic encephalopathy: Status: Acute (3) Hypokalemia: Status: Acute (4) Watery diarrhea: Status: Acute (5) Pelvic mass: Status: Acute DS: Summary Hospital Course Hospital Course: Admission note HPI 85F brought in by ambulance after family called for weakness and confusion. patient started having diarrhea about 1 week ptp. she was treated with OTC antidiarrheals with improvement in diarrhea. diarrhea was watery and brown. she denied blood or abdominal pain, no fever no chills. patient then started becoming progressively weaker, diffculty ambulating (normally ambulates with walker), increased confusion (normally AO X3, with mild cognitive impairment), decreased appetite. in EMS was noted to have 88% saturation on room air, though in ED was not hypoxic. CT chest was unremarkable, CT abdomen showed diffuse colitis, large adnexal mass. Hospital course The patient was admitted to the hospital for evaluation of weakness, confusion and recurrent diarrhea. CT scan of the abdomen reported colitis. Treated primarily with IV antibiotics until stool was collected and showed C diff infection. Patient then started on vancomycin orally with good response as the pain, nausea and diarrhea resolved. She was able to tolerate diet. Blood cultures remain negative. She was evaluated by Gastroenterology who recommended no intervention. Her mentation improved as the infection was treated. She is back to her baseline station. CT scan also reported a pelvic mass that was evaluated by an ultrasound showed? 7.5 x 4.5 x 5.7 cm solid left adnexal mass. With Low ca-125 reading. to be followed as outpatient with PCP Evaluated by Physical therapy who recommended short-term rehab. To continue vancomycin for 10 more days Time Spent with Patient Time attestation: Total time spent providing and/or coordinating discharge services: Discharge coordination time: Greater than 30 minutes Quality: Stroke Does the patient have a stroke diagnosis?: No Physical Exam Vital Signs: Vital Signs: Last Vital Signs Temp 98.3 F 04/11/21 07:48 Pulse 85 04/11/21 07:48 Resp 18 04/11/21 07:48 BP 168/90 H 04/11/21 07:48 Pulse Ox 98 04/11/21 07:48 BMI result Body Mass Index 24.0 Const: Other: Constitutional : Alert, interactive, not in distress Neck : Normal inspection, Supple Cardiovascular : RRR, S1 S2, no lower extremity edema Respiratory : Good bilateral air entry, no crackles, wheezes or rhonchi Gastrointestinal: soft, lax, Normal bowel sounds, no tenderness Skin : Warm, Dry Neurological : Alert & oriented to self, No focal deficit DS: Data Data Completed and Pending Labs on day of discharge: Preliminary micro results at discharge 04/08/21 Unknown Stool Culture - Preliminary Stool Culture in progress. Discharge Plan Discharge Patient Disposition: [facility] Discharge Diagnosis: C diff colitis Electrolyte imbalance Referrals: [facility] [Outside] - 1 Day (SHORT TERM REHAB) Karmen Grimaldo MD [Primary Care Provider] - 1 Week Discharge Medications: New vancomycin 125 mg Capsule 125 mg PO Q6H 10 Days Qty: 40 RF: 0 Continued atorvastatin 20 mg tablet 20 mg PO DAILY Qty: 90 RF: 3 acetaminophen [Tylenol] 325 mg capsule 325 mg PO QID PRN (Reason: pain) Qty: 28 RF: 0 lisinopril 20 mg tablet 1 tab PO DAILY RF: 0 Discharge Orders: Discharge Order (Routine); Ordered 04/11/21 Ordered By: Frank Chavez Activity on Discharge: As tolerated Stand Alone Forms: Patient Portal Discharge page Care Plan Goals: Read below Health Concerns: Read below Plan of Treatment: Read below Assessment: You were admitted to the hospital for evaluation of abdominal pain. Images for your stomach was consistent with colitis. Stool test showed bacteria called coli street him difficult. Treated with oral antibiotic with good response as diarrhea resolved. Continue vancomycin for 10 more days Discharge Date/Time: 04/11/21 15:30
[2021-04-11 13:28] LABS: Influenza A PCR NEGATIVE (Negative); Influenza B PCR NEGATIVE (Negative); Resp Syncy Virus RNA Qual PCR NEGATIVE (Negative); SARS COV2 PCR INHOUSE NEGATIVE (Negative)
--- NOTE | 2021-04-11 14:02 | MHC.CM.PN ---
IMM 04/11/21, PT DISCHARGING TO [facility] AT 3PM W/ACTION FOR BLS TRANSPORT, CM MET W/PT AND SON AND DTR-IN-LAW AT BEDSIDE AND THEY ARE ALL AGREEABLE TO PLAN.
== END 2021-04-11 15:30 | disposition skilled nursing facility (03) | DRG 371 ==
LOC: HO.ED 15:06 → HO.EDOVER 16:40 → HO.S3 04-06 09:36
PROVIDERS: Physician Assistant; Admitting Provider Internal Medicine; Emergency Provider Emergency Medicine; PCP Internal Medicine; Visit Provider Student in an Organized Health Care Education/Training Program
DX: A04.72 Enterocolitis due to Clostridium difficile, not specified as recurrent (principal); G93.41 Metabolic encephalopathy; E87.6 Hypokalemia; R19.09 Other intra-abdominal and pelvic swelling, mass and lump; F03.90 Unspecified dementia, unspecified severity, without behavioral disturbance, psychotic disturbance, mood disturbance, and anxiety; I10 Essential (primary) hypertension; E78.5 Hyperlipidemia, unspecified; Z23 Encounter for immunization; Z79.899 Other long term (current) drug therapy; Z66 Do not resuscitate
CPT/HCPCS: 0241U; 36415; 70450; 71046; 71250; 74176; 76856; 80048; 80076; 81003; 83605; 83735; 83880; 85025; 85027; 86304; 87040; 87045; 87046; 87324; 87493; 87635; 90686; 93005; 93975; 96361; 96365; 96367; 96375; 97110; 97162; 99285; 99291; J0456; J0696; J1650

== ENCOUNTER 2021-08-13 13:59 | Emergency (ER) | payer MEDICARE, SELFPAY ==
--- NOTE | ~2021-08-13 | CT_ITS ---
EXAMINATION: CT ABDOMEN AND PELVIS WITH CONTRAST CLINICAL INFORMATION: Pain COMPARISON: CT abdomen pelvis 04/05/2021 TECHNIQUE: Multidetector volumetric images were obtained from the superior aspect of the liver through the pubic symphysis following administration 85 mL of Omnipaque 350 intravenous contrast. Sagittal and coronal reformatted images were obtained on the technologist's workstation. Oral contrast: No This CT examination was performed using dose optimization techniques as appropriate, variously including the following: *Automated exposure control *Adjustment of mA and/or kV according to patient size (this includes techniques or standardized protocols for targeted exams where dose is matched to indication/reason for exam; i.e. extremities or head) *Use of iterative reconstruction technique DLP: 473 mGy-cm FINDINGS: LUNG BASES: Calcified granuloma in the left lung base. ABDOMINAL AND PELVIC WALL: Small fat-containing umbilical hernia. Small fat-containing left inguinal hernia. Small right inguinal hernia containing fat and fluid unchanged from prior. No herniated bowel. LIVER AND BILIARY TREE: Unremarkable. GALLBLADDER: Cholelithiasis without evidence of acute cholecystitis. PANCREAS: Unremarkable. SPLEEN: Unremarkable. ADRENAL GLANDS: Unremarkable. KIDNEYS AND URETERS: Unremarkable. GASTROINTESTINAL TRACT: Small hiatal hernia. Colonic diverticulosis without evidence of diverticulitis. VASCULAR: Unremarkable. LYMPH NODES/PERITONEUM: No lymphadenopathy. FREE FLUID: None. BLADDER: Unremarkable. PELVIC VISCERA: A 8.6 x 5.0 cm heterogeneously enhancing solid left adnexal mass, increased in size from prior previously 7.4 x 4.9 cm no discrete left ovary is discernible separate from the mass and the mass is inseparable from the uterus. OSSEOUS STRUCTURES: Unremarkable. CT/CT abdomen pelvis w con IMPRESSION: An 8.6 cm heterogeneously enhancing solid left adnexal mass inseparable from the uterus suspicious for malignancy, increased in size from prior. No discrete left ovary is appreciated. Recommend gynecologic referral if not already obtained. Cholelithiasis without evidence of acute cholecystitis. Small right inguinal hernia contains fat and fluid however is unchanged from prior. No herniated bowel. The findings and recommendations were discussed with Sarah Flores NP by telephone at 08/13/2021 5:41 PM and it was ascertained that the content and urgency of the report was understood at the time of direct communication.
--- NOTE | 2021-08-13 14:27 | ECG_ITS ---
Test Reason : ABD PAIN Blood Pressure : / mmHG Vent. Rate : 075 BPM Atrial Rate : 075 BPM P-R Int : 152 ms QRS Dur : 076 ms QT Int : 384 ms P-R-T Axes : -04 045 013 degrees QTc Int : 428 ms Sinus rhythm with Premature atrial complexes in a pattern of bigeminy Nonspecific T wave abnormality Abnormal ECG When compared with ECG of 05-APR-2021 09:41, Nonspecific T wave abnormality, improved in Anterolateral leads Referred By: Sarah Flores Electronically Signed By:DULCE ZARAGOZA MD
--- NOTE | 2021-08-13 14:30 | ED_ITS ---
HPI - Abdominal Pain General Chief Complaint: Abdominal Pain Stated Complaint: RLQ PAIN Time Seen by Provider: 08/13/21 14:17 Source: patient and EMS Mode of arrival: EMS Limitations: no limitations History of Present Illness HPI narrative: 85 yo female with history of HTN, HLD, c diff colitis treated here with com plaints of 2 hrs of right lower abdomen with radiation to the umbilicus with no reports of nausea, vomiting, diarrhea, urinary symptoms, fevers, chills. Last BM yesterday and normal. Related Data Home Medications Medication Instructions Recorded Confirmed lisinopril 20 mg tablet 1 tab PO DAILY 04/05/21 04/05/21 Previous Rx's Medication Instructions Recorded acetaminophen 325 mg capsule 325 mg PO QID PRN #28 cap 02/24/20 (Tylenol) oxycodone 5 mg tablet 5 mg PO Q8H PRN #10 tab 08/13/21 Allergies Allergy/AdvReac Type Severity Reaction Status Date / Time novacaine Allergy Intermediate Dizziness Uncoded 04/26/21 13:20 Review of Systems Review of Systems Yes all other systems are reviewed and are negative Constitutional: Reports no additional constitutional complaints, Denies body ache(s), Denies chills, Denies fever(s), Denies headache(s) and Denies weakness Eyes: Reports no additional eye complaints and Denies change in vision Reports system reviewed and no additional complaints, except as documented, Denies dizziness, Denies headache(s), Denies nasal congestion, Denies nasal discharge and Denies neck pain Cardiovascular: Reports no additional cardiovascular complaints, Denies chest pain, Denies leg edema and Denies dyspnea Respiratory: Reports no additional respiratory complaints, Denies cough and Denies dyspnea Gastrointestinal: Reports no additional gastrointestinal complaints, Reports abdominal pain, Denies diarrhea, Denies nausea and Denies vomiting Genitourinary: Reports no additional female genitourinary complaints and Denies urinary incontinence Musculoskeletal: Reports no additional musculoskeletal complaints, Denies back pain, Denies arthralgias, Denies joint swelling, Denies neck pain, Denies numbness and Denies tingling Skin/Breast: Reports system reviewed and no additional complaints, except as docu and Denies rash Reports system reviewed and no additional complaints, except as documented, Denies dizziness, Denies headache(s), Denies numbness, Denies tingling and Denies weakness [facility] Past Medical History Attestation statement: The following information was validated with the patient. Source: old records reviewed and nursing notes reviewed Medical History Dyslipidemia Fall Hearing loss Hypertension Pelvic mass Surgical History History of arthroplasty of left ankle Family History Family History Father No problems noted. Mother CAD (coronary artery disease) Social History Social History Household Members: Family Housing: House Do you presently have visiting nurse or other home services: No Alcohol intake: never Patient Tobacco Use Status: Never used Tobacco e-Cigarette/Vaping Use: Never Used Use of substances other than those prescribed or required for medical reasons: No Advance Directives: No Advance Directives Information Provided: No Advance Directives Date on File: 04/05/21 service: No Current occupational status: retired Physical Exam ED Vital Signs: Vital Signs - 24 hr 08/13/21 14:36 08/13/21 15:52 Temperature 97.4 F 97.4 F Pulse Rate 77 73 Respiratory Rate 18 18 Blood Pressure 186/98 H 163/80 H Pulse Oximetry 98 BMI result Body Mass Index 23.3 GI Inspection: Yes normal to inspection Palpation (GI): Soft to palpation and Tenderness to palpation present (GI) (RLQ/mid abdomen-+guarding, no rebound) Course Course Course Narrative: 85 yo female here with 2 hrs of abdominal pain. Will need labs, UA, CT A/P Reevaluation(s) Reevaluation #1: CT shows An 8.6 cm heterogeneously enhancing solid left adnexal mass inseparable from the uterus suspicious for malignancy, increased in size from prior. No discrete left ovary is appreciated. Recommend gynecologic referral if not already obtained. Cholelithiasis without evidence of acute cholecystitis. -labs are unremarkable, UA is negative. Patient is feeling improved after receiving 1 dose of IV morphine. I discussed the findings with her. She tells me she knew about the left adnexal masses it was seen and her last CT scan. She tells me was recommended she see gynecology but she tells me she was not interested in any surgical intervention, chemo or radiation it was found to be malignant. Additionally we discussed there are gallstones seen on her CT scan. This may be also contributing to her pain. There is no evidence of acute cholecystitis. Patient tells me if there was she would not be interested in any surgical intervention. She is most interested and remaining at home and remaining comfortable and pain-free. I discussed all of this with her family who she lives with. Our plan is to discharge her home with pain control as she is not interested in any other interventions. Reviewed worrisome signs and symptoms of when to return to the emergency department. Comfortable discharge home. Time: 18:30 MDM - Abdominal Pain Differential Diagnosis Differential diagnosis: Likely diverticulitis, gastroenteritis and pancreatitis Medical Records Attestation: I reviewed the patient's medical records. Lab Data Attestation: I reviewed the patient's lab results. Result diagrams: 08/13/21 15:51 08/13/21 15:51 Labs: Lab Results 08/13/21 08/13/21 08/13/21 Range/Units 15:50 15:50 15:51 WBC 4.5 L (4.8-10.8) X10*3/uL RBC 4.88 D (4.20-5.50) X10*6/uL Hgb 14.2 D (12.0-16.0) g/dl Hct 44.6 D (37.0-47.0) % MCV 91.4 (80.0-98.0) fL MCH 29.1 (27.0-33.0) pg MCHC 31.8 (31.0-35.0) g/dl RDW 13.1 (11.0-16.0) % Plt Count 268 (160-400) X10*3/uL MPV 9.6 (9.4-12.3) fL Immature Gran % (Auto) 0.2 (0.0-0.4) % Neut % (Auto) 57.5 (45-73) % Lymph % (Auto) 33.5 (20-40) % [place] % (Auto) 7.5 (2-11) % Eos % (Auto) 0.9 (0-4) % Baso % (Auto) 0.4 (0-2) % Lymph # (Auto) 1.5 (1.2-4.9) X10*3/uL [place] # (Auto) 0.3 (0.1-1.2) X10*3/uL Eos # (Auto) 0.0 (0.0-0.4) X10*3/uL Baso # (Auto) 0.0 (0.0-0.2) X10*3/uL Abs Immat Gran (auto) 0.01 (0.00-0.03) X10*3/uL Absolute Neuts (auto) 2.6 (2.0-8.3) x10*3/uL Absolute Nucleated RBC 0.000 (0.0-0.012) X10*3/uL Nucleated RBC % (auto) 0.0 (0.0-0.2) /100WBC Sodium (135-145) mmol/L Potassium (3.3-5.1) mmol/L Chloride (96-108) mmol/L Carbon Dioxide (22-29) mmol/L Anion Gap (12-20) BUN (9-16) mg/dL Creatinine (0.5-1.4) mg/dL Estim Creat Clear Calc Estimated GFR Random Glucose (60-115) mg/dL Lactic Acid 0.7 (0.5-2.0) mmol/L Calcium (8.4-10.2) mg/dL Total Bilirubin (0.0-1.0) mg/dL Direct Bilirubin (0.0-0.5) mg/dL AST (5-31) U/L ALT (0-31) U/L Alkaline Phosphatase (39-117) U/L Total Protein (6.5-8.0) g/dL Albumin (3.5-5.0) g/dL Lipase (8-78) U/L Urine Color YELLOW Urine Appearance CLEAR Urine pH 5.5 (5.0-8.0) Ur Specific [place] <= 1.005 (1.005-1.025) Urine Protein NEG (NEG-TRACE) MG/DL Urine Glucose (UA) NEG (NEG) MG/DL Urine Ketones NEG (NEG) MG/DL Urine Blood NEG (NEG) Urine Nitrite NEG (NEG) Ur Leukocyte Esterase TRACE H (NEG) Urine RBC 0-2 (0) /HPF Urine WBC 0-2 (0-4) /HPF Ur Squamous Epith Cells TRACE /LPF Urine Bacteria NONE /LPF 08/13/21 Range/Units 15:51 WBC (4.8-10.8) X10*3/uL RBC (4.20-5.50) X10*6/uL Hgb (12.0-16.0) g/dl Hct (37.0-47.0) % MCV (80.0-98.0) fL MCH (27.0-33.0) pg MCHC (31.0-35.0) g/dl RDW (11.0-16.0) % Plt Count (160-400) X10*3/uL MPV (9.4-12.3) fL Immature Gran % (Auto) (0.0-0.4) % Neut % (Auto) (45-73) % Lymph % (Auto) (20-40) % [place] % (Auto) (2-11) % Eos % (Auto) (0-4) % Baso % (Auto) (0-2) % Lymph # (Auto) (1.2-4.9) X10*3/uL [place] # (Auto) (0.1-1.2) X10*3/uL Eos # (Auto) (0.0-0.4) X10*3/uL Baso # (Auto) (0.0-0.2) X10*3/uL Abs Immat Gran (auto) (0.00-0.03) X10*3/uL Absolute Neuts (auto) (2.0-8.3) x10*3/uL Absolute Nucleated RBC (0.0-0.012) X10*3/uL Nucleated RBC % (auto) (0.0-0.2) /100WBC Sodium 139 (135-145) mmol/L Potassium 4.8 D (3.3-5.1) mmol/L Chloride 102 (96-108) mmol/L Carbon Dioxide 28 (22-29) mmol/L Anion Gap 14 (12-20) BUN 24 H D (9-16) mg/dL Creatinine 0.73 (0.5-1.4) mg/dL Estim Creat Clear Calc 51.8 Estimated GFR > 60 Random Glucose 93 (60-115) mg/dL Lactic Acid (0.5-2.0) mmol/L Calcium 9.5 D (8.4-10.2) mg/dL Total Bilirubin 0.5 (0.0-1.0) mg/dL Direct Bilirubin 0.2 (0.0-0.5) mg/dL AST 17 (5-31) U/L ALT 13 (0-31) U/L Alkaline Phosphatase 95 D (39-117) U/L Total Protein 7.1 D (6.5-8.0) g/dL Albumin 4.0 (3.5-5.0) g/dL Lipase 19 (8-78) U/L Urine Color Urine Appearance Urine pH (5.0-8.0) Ur Specific [place] (1.005-1.025) Urine Protein (NEG-TRACE) MG/DL Urine Glucose (UA) (NEG) MG/DL Urine Ketones (NEG) MG/DL Urine Blood (NEG) Urine Nitrite (NEG) Ur Leukocyte Esterase (NEG) Urine RBC (0) /HPF Urine WBC (0-4) /HPF Ur Squamous Epith Cells /LPF Urine Bacteria /LPF Imaging Data CT scan - abdomen: Attestation: I personally reviewed and interpreted this imaging study as follows: Radiologist's impression: [place] [id number] CT Scan Report Signed Patient: Nikia Duffy MR#: [id number] : 1935 Acct:[id number] Age/Sex: 85 / F ADM Date: 08/13/21 Loc: .ED Attending Dr: Ordering Physician: Sarah Flores NP Date of Service: 08/13/21 Procedure(s): CT abdomen pelvis w con Accession Number(s): [id number] cc: Sarah Flores NP~ EXAMINATION: CT ABDOMEN AND PELVIS WITH CONTRAST? CLINICAL INFORMATION: Pain? COMPARISON: CT abdomen pelvis 04/05/2021? TECHNIQUE: Multidetector volumetric images were obtained from the superior aspect of the liver through the pubic symphysis following administration 85 mL of Omnipaque 350 intravenous contrast. Sagittal and coronal reformatted images were obtained on the technologist's workstation.? Oral contrast: No This CT examination was performed using dose optimization techniques as appropriate, variously including the following: *Automated exposure control *Adjustment of mA and/or kV according to patient size (this includes techniques or standardized protocols for targeted exams where dose is matched to indication/reason for exam; i.e. extremities or head) *Use of iterative reconstruction technique DLP: 473 mGy-cm FINDINGS: LUNG BASES: Calcified granuloma in the left lung base.? ABDOMINAL AND PELVIC WALL:? Small fat-containing umbilical hernia. Small fat-containing left inguinal hernia. Small right inguinal hernia containing fat and fluid unchanged from prior. No herniated bowel. LIVER AND BILIARY TREE: Unremarkable.? GALLBLADDER: Cholelithiasis without evidence of acute cholecystitis.? PANCREAS: Unremarkable.? SPLEEN: Unremarkable.? ADRENAL GLANDS: Unremarkable.? KIDNEYS AND URETERS: Unremarkable.? GASTROINTESTINAL TRACT: Small hiatal hernia. Colonic diverticulosis without evidence of diverticulitis. VASCULAR: Unremarkable. LYMPH NODES/PERITONEUM: No lymphadenopathy. FREE FLUID: None. BLADDER: Unremarkable.? PELVIC VISCERA: A 8.6 x 5.0 cm heterogeneously enhancing solid left adnexal mass, increased in size from prior previously 7.4 x 4.9 cm no discrete left ovary is discernible separate from the mass and the mass is inseparable from the uterus. OSSEOUS STRUCTURES: Unremarkable.? CT/CT abdomen pelvis w con IMPRESSION: ? An 8.6 cm heterogeneously enhancing solid left adnexal mass inseparable from the uterus suspicious for malignancy, increased in size from prior. No discrete left ovary is appreciated. Recommend gynecologic referral if not already obtained. ? Cholelithiasis without evidence of acute cholecystitis. ? Small right inguinal hernia contains fat and fluid however is unchanged from prior. No herniated bowel. ? The findings and recommendations were discussed with Sarah Flores NP? by telephone at 08/13/2021 5:41 PM and it was ascertained that the content and urgency of the report was understood at the time of direct communication. ? ECG Data Attestation: I personally reviewed and interpreted this ECG as follows: ECG interpretation date: 08/13/21 ECG interpretation time: 15:32 Interpretation: SR with PACs with rate 75, normal pr, normal qrs, normal qt Discharge Plan Discharge Clinical Impression: Adnexal mass, Gallstones Patient Disposition: Home, Self-Care Instructions: Gallstones (ED) Additional Instructions: Your CT scan shows a mass over your left ovary that looks like it may be cancer You also have some gallstones. You were not interested in any surgical options were discussion about chemo or radiation Please have a low-fat diet as fat may trigger further episodes of pain Follow-up with your primary care doctor Prescriptions: New oxycodone 5 mg tablet 5 mg PO Q8H PRN (Reason: pain) Qty: 10 0RF No Action acetaminophen [Tylenol] 325 mg capsule 325 mg PO QID PRN (Reason: pain) Qty: 28 0RF lisinopril 20 mg tablet 1 tab PO DAILY 0RF Referrals: Physician,Unknown J [Primary Care Provider] - 5 days
[2021-08-13 14:36] VITALS: BP 118/66; BP 186/98; PULSE 77; PULSE 79; RESP 18; TEMP 36.3; O2SAT 98; BMI 23.3
[2021-08-13 15:52] VITALS: BP 163/80; PULSE 73; RESP 18; TEMP 36.3; O2SAT 98
--- NOTE | 2021-08-13 15:54 | PC.NURSE ---
pt c/o right inguinal pain since this am after breakfast. was a 2 person assist to commode. states as fast as the pain came it's disappearing . denies dysuria.
[2021-08-13 16:00] LABS: MANUAL DIFF FLAG NO
[2021-08-13 16:18] LABS: Basophils Percent Auto 0.4 % (0-2); Eosinophils Percent Auto 0.9 % (0-4); Hematocrit 44.6 % (37.0-47.0); Hemoglobin 14.2 g/dl (12.0-16.0); Imm Gran Abs Auto 0.01 X10*3/uL (0.00-0.03); Imm Gran Pct Auto 0.2 % (0.0-0.4); Lymphocytes Absolute Auto 1.5 X10*3/uL (1.2-4.9); Lymphocytes Percent Auto 33.5 % (20-40); Mean Corpuscular HGB Conc 31.8 g/dl (31.0-35.0); Mean Corpuscular Hemoglobin 29.1 pg (27.0-33.0); Mean Corpuscular Volume 91.4 fL (80.0-98.0); Mean Platelet Volume 9.6 fL (9.4-12.3); Monocytes Absolute Auto 0.3 X10*3/uL (0.1-1.2); Monocytes Percent Auto 7.5 % (2-11); Neutrophils Absolute Auto 2.6 x10*3/uL (2.0-8.3); Neutrophils Percent Auto 57.5 % (45-73); Platelet Count 268 X10*3/uL (160-400); Red Blood Count 4.88 X10*6/uL (4.20-5.50); Red Cell Distribution Width 13.1 % (11.0-16.0); White Blood Count 4.5 X10*3/uL (4.8-10.8)
[2021-08-13 16:18] LABS: Appearance Urine CLEAR; Color Urine YELLOW; Glucose Urine UA NEG (NEG); Leukocyte Esterase Urine TRACE (NEG); Nitrite Urine NEG (NEG); PH 5.5 (5.0-8.0); Specific Gravity - Urine <= 1.005 (1.005-1.025); UACC Culture Trigger YES; Urine Blood NEG (NEG); Urine Ketones NEG (NEG); Urine Protein NEG (NEG-TRACE)
[2021-08-13 16:24] LABS: Lactic Acid 0.7 mmol/L (0.5-2.0)
[2021-08-13 16:34] LABS: Alanine Aminotransferase 13 U/L (0-31); Alkaline Phosphatase 95 U/L (39-117); Anion Gap 14 (12-20); Aspartate Amino Transferase 17 U/L (5-31); Bilirubin Direct 0.2 mg/dL (0.0-0.5); Bilirubin Total 0.5 mg/dL (0.0-1.0); Blood Urea Nitrogen 24 mg/dL (9-16); Calcium 9.5 mg/dL (8.4-10.2); Carbon Dioxide 28 mmol/L (22-29); Chloride 102 mmol/L (96-108); Creatinine Clr Calc Pharmacy 51.8; Estimated Glomerular Filt Rate > 60; Glucose Random 93 mg/dL (60-115); Lipase 19 U/L (8-78); Potassium 4.8 mmol/L (3.3-5.1); Sodium 139 mmol/L (135-145); Total Protein 7.1 g/dL (6.5-8.0)
[2021-08-13 16:43] LABS: WBC Urine 0-2 /HPF (0-4)
[2021-08-13 16:44] LABS: RBC Urine 0-2 /HPF (0); Squamous Epithelial Cell Urine TRACE /LPF
[2021-08-13] MEDS: iohexoL 350 MG/ML 100 ML INFUS..BTL IV (16:54)
--- NOTE | 2021-08-13 17:57 | PC.NURSE ---
update to judy thompson in law. [phone]
== END 2021-08-13 19:23 | disposition home or self-care (01) ==
PROVIDERS: Nurse Practitioner Family; Emergency Provider Internal Medicine
DX: R19.09 Other intra-abdominal and pelvic swelling, mass and lump (principal); K80.20 Calculus of gallbladder without cholecystitis without obstruction; R10.31 Right lower quadrant pain; I10 Essential (primary) hypertension; E78.5 Hyperlipidemia, unspecified; Z79.899 Other long term (current) drug therapy
CPT/HCPCS: 36415; 74177; 80048; 80076; 81001; 81003; 83605; 83690; 85025; 87086; 93005; 96374; 99284; Q9967

== ENCOUNTER 2021-08-17 07:18 | Outpatient (REF) | payer MEDICARE, SELFPAY ==
[2021-08-17 10:37] LABS: MANUAL DIFF FLAG NO
[2021-08-17 10:39] LABS: Basophils Percent Auto 0.4 % (0-2); Eosinophils Absolute Auto 0.1 X10*3/uL (0.0-0.4); Eosinophils Percent Auto 1.3 % (0-4); Hematocrit 41.8 % (37.0-47.0); Hemoglobin 13.3 g/dl (12.0-16.0); Imm Gran Abs Auto 0.01 X10*3/uL (0.00-0.03); Imm Gran Pct Auto 0.2 % (0.0-0.4); Lymphocytes Absolute Auto 2.2 X10*3/uL (1.2-4.9); Lymphocytes Percent Auto 40.2 % (20-40); Mean Corpuscular HGB Conc 31.8 g/dl (31.0-35.0); Mean Corpuscular Hemoglobin 29.6 pg (27.0-33.0); Mean Corpuscular Volume 93.1 fL (80.0-98.0); Mean Platelet Volume 10.3 fL (9.4-12.3); Monocytes Absolute Auto 0.4 X10*3/uL (0.1-1.2); Monocytes Percent Auto 6.9 % (2-11); Neutrophils Absolute Auto 2.8 x10*3/uL (2.0-8.3); Platelet Count 268 X10*3/uL (160-400); Red Blood Count 4.49 X10*6/uL (4.20-5.50); Red Cell Distribution Width 13.1 % (11.0-16.0); White Blood Count 5.5 X10*3/uL (4.8-10.8)
[2021-08-17 10:50] LABS: Alanine Aminotransferase 10 U/L (0-31); Alkaline Phosphatase 98 U/L (39-117); Anion Gap 11 (12-20); Aspartate Amino Transferase 15 U/L (5-31); Bilirubin Total 0.6 mg/dL (0.0-1.0); Blood Urea Nitrogen 20 mg/dL (9-16); Calcium 9.3 mg/dL (8.4-10.2); Carbon Dioxide 30 mmol/L (22-29); Chloride 105 mmol/L (96-108); Cholesterol 210 mg/dL; Estimated Glomerular Filt Rate > 60; Glucose Fasting 79 mg/dL (60-99); HDL Cholesterol 57 mg/dL; LDL Cholesterol Calculated 135 mg/dl; Potassium 3.9 mmol/L (3.3-5.1); Sodium 142 mmol/L (135-145); Total Protein 6.9 g/dL (6.5-8.0); Triglycerides 93 mg/dL
== END 2021-08-17 07:19 | disposition home or self-care (01) ==
LOC: HO.WFDLDS 07:18
PROVIDERS: PCP Internal Medicine; Visit Provider Nurse Practitioner Family
DX: E78.00 Pure hypercholesterolemia, unspecified (principal); R79.89 Other specified abnormal findings of blood chemistry; A04.72 Enterocolitis due to Clostridium difficile, not specified as recurrent
CPT/HCPCS: 36415; 80053; 80061; 85025

== ENCOUNTER 2022-01-04 11:57 | Emergency (ER) | payer MEDICARE, SELFPAY ==
--- NOTE | ~2022-01-04 | CT_ITS ---
Indication: Lethargy weakness, pelvic mass history, question deformity, pain left side EXAMINATION: CT of the chest abdomen pelvis noncontrast. Axial imaging with coronal and sagittal reformatted images. This CT examination was performed using dose optimization techniques as appropriate, variously including the following: *Automated exposure control *Adjustment of mA and/or kV according to patient size (this includes techniques or standardized protocols for targeted exams where dose is matched to indication/reason for exam; i.e. extremities or head) *Use of iterative reconstruction technique. Radiation dose is 298. CT chest is compared to 04/05/2021 and abdomen compared to 04/05/2021. CT chest; The thoracic inlet is felt to be comparable to previous. The axillary regions are unremarkable comparable to previous. Centrally coronary calcifications are seen here. There is no free fluid present in the mediastinum. There is no bulky mediastinal adenopathy although there is some probable increasing adenopathy in the subcarinal regions. The hilar structures are comparable to previous though this is a noncontrast study and difficult to fully evaluate. Imaging lung grigsby. Right lung; Motion degrades this study. Cannot rule out some mild increase of a small nodule in the right upper lung but motion cause this appearance. Measures approximately 3 to 4 mm. Image 12. Once again right lower lobe atelectasis or scarring is seen. There is no large area of infiltrate here. There is no pneumothorax. There is no effusion. Some mild groundglass change adjacent to the minor fissure on image 25. Attention to follow-up. Left lung; There is no evidence for pneumothorax or effusion. Mildly increasing left basilar opacities may be ongoing chronic change or a small area of infiltrate superimposed on chronic change. There is bronchial thickening. Mild atelectasis left lateral lung zone. No significant effusion. Upper abdomen; Limitation here from artifact. The patient's hands create artifact and lesions create artifact in the upper abdomen. Liver is grossly within normal limits. Gallstones are noted once again in the gallbladder. Region the pancreas is felt to be comparable. The spleen is within normal limits. Area of the adrenal glands is comparable. Some fullness of the adrenals similar to previous. Kidneys are nonhydronephrotic. Small area of increased attenuation midpole left kidney is similar to previous. There is no hydronephrosis. The bladder is within normal limits. The bowel pattern is felt to be nonobstructing. There is no free fluid. Atherosclerotic change but no aneurysmal change in the vasculature. There is no evidence for bulky adenopathy here. In the pelvis once again heterogeneous appearance to the uterus. There is some shifting density here. Findings may suggest a pedunculated fibroid which is moved. Consider ultrasound to fully evaluate. Review of the bone windows demonstrates degenerative changes. No convincing evidence for an acute bony fracture. No compression injury. Probable dystrophic calcification adjacent to the proximal left humerus. CT/CT abdomen pelvis wo IV con IMPRESSION: No acute finding is seen here. In the chest or is no free fluid. No significant infiltrate or effusion. No fracture is seen. Some scattered areas of nodularity and groundglass change. Attention to follow-up with mildly increasing left basilar opacity may be ongoing chronic change or small area of infiltrate. No acute finding the abdomen pelvis. There is some shifting opacity in the deep pelvis which is likely fibroid change which may be pedunculated in this patient. Correlation recommended clinically. Consider ultrasound. Gallstones are noted
--- NOTE | ~2022-01-04 | XR_ITS ---
EXAMINATION: LEFT TIB-FIB 4 VIEWS LEFT HIP 3 VIEWS LEFT FOREARM 3 VIEWS CLINICAL INFORMATION: Redness swelling, question deformity COMPARISON: None TECHNIQUE: As above FINDINGS: Left tib-fib imaging demonstrates ORIF changes distally with intact hardware. There is however failure. Ankle mortise appears anatomic and the previous old injury appears well-healed. No knee effusion. [place] calcifications suggesting diabetes. Mild generalized osteopenia. Left hip imaging demonstrates no acute deformity. Trochanters and femoral neck intact. Acetabulum intact. Pubic bone intact. Left forearm imaging demonstrates no acute deformity. No soft tissue air or focal swelling. No periosteal new bone formation. XR/XR hip LT w PEL1V IMPRESSION: No acute findings as above.
--- NOTE | ~2022-01-04 | CT_ITS ---
EXAMINATION: CT HEAD WITHOUT CONTRAST CLINICAL INFORMATION: Altered mental status. COMPARISON: Head CT scan dated 04/05/2021. TECHNIQUE: Contiguous axial imaging was performed from the skull base to vertex without intravenous administration of contrast. Coronal and sagittal reformatted images were obtained. This CT examination was performed using dose optimization techniques as appropriate, variously including the following: *Automated exposure control *Adjustment of mA and/or kV according to patient size (this includes techniques or standardized protocols for targeted exams where dose is matched to indication/reason for exam; i.e. extremities or head) *Use of iterative reconstruction technique DLP: 685.97 mGy-cm FINDINGS: There is mild widening of the cortical sulci and associated ventriculomegaly. Mild periventricular microvascular changes are seen. The lateral ventricles are symmetrical. The third and fourth ventricles are in their normal midline position. The basilar and prepontine cisterns are unremarkable. There is no acute intra or extracerebral abnormality. There is no mass effect or midline shift. Sections through the bony calvarium are unremarkable. The orbits are intact. The paranasal sinuses are clear. The mastoid air cells are clear. Mild anterior nasal septal deviation, apex to the left. CT/CT head/brain wo IV con IMPRESSION: No acute intracranial pathology.
--- NOTE | ~2022-01-04 | XR_ITS ---
EXAMINATION: LEFT TIB-FIB 4 VIEWS LEFT HIP 3 VIEWS LEFT FOREARM 3 VIEWS CLINICAL INFORMATION: Redness swelling, question deformity COMPARISON: None TECHNIQUE: As above FINDINGS: Left tib-fib imaging demonstrates ORIF changes distally with intact hardware. There is however failure. Ankle mortise appears anatomic and the previous old injury appears well-healed. No knee effusion. [place] calcifications suggesting diabetes. Mild generalized osteopenia. Left hip imaging demonstrates no acute deformity. Trochanters and femoral neck intact. Acetabulum intact. Pubic bone intact. Left forearm imaging demonstrates no acute deformity. No soft tissue air or focal swelling. No periosteal new bone formation. XR/XR forearm LT 2V IMPRESSION: No acute findings as above.
--- NOTE | ~2022-01-04 | XR_ITS ---
EXAMINATION: LEFT TIB-FIB 4 VIEWS LEFT HIP 3 VIEWS LEFT FOREARM 3 VIEWS CLINICAL INFORMATION: Redness swelling, question deformity COMPARISON: None TECHNIQUE: As above FINDINGS: Left tib-fib imaging demonstrates ORIF changes distally with intact hardware. There is however failure. Ankle mortise appears anatomic and the previous old injury appears well-healed. No knee effusion. Monckeberg calcifications suggesting diabetes. Mild generalized osteopenia. Left hip imaging demonstrates no acute deformity. Trochanters and femoral neck intact. Acetabulum intact. Pubic bone intact. Left forearm imaging demonstrates no acute deformity. No soft tissue air or focal swelling. No periosteal new bone formation. XR/XR tibia fibula LT 2V IMPRESSION: No acute findings as above.
--- NOTE | 2022-01-04 12:02 | ECG_ITS ---
Test Reason : Weakness Blood Pressure : / mmHG Vent. Rate : 075 BPM Atrial Rate : 075 BPM P-R Int : 128 ms QRS Dur : 086 ms QT Int : 362 ms P-R-T Axes : -07 058 000 degrees QTc Int : 404 ms Poor data quality, interpretation may be adversely affected Sinus rhythm with Premature supraventricular complexes Nonspecific T wave abnormality Abnormal ECG When compared with ECG of 13-AUG-2021 15:32, Nonspecific T wave abnormality now evident in Anterior leads Referred By: Khadra Durant Electronically Signed By:JUANCARLOS GOMEZ
[2022-01-04 12:06] VITALS: BP 150/57; BP 97/60; PULSE 102; PULSE 88; RESP 18; TEMP 36.6; O2SAT 94; O2SAT 95; BMI 21.7
--- NOTE | 2022-01-04 12:22 | ED_ITS ---
HPI - Weakness General Chief complaint: Weakness Stated complaint: ALTERED MENTAL STATUS Time Seen by Provider: 01/04/22 12:02 Source: patient and EMS Mode of arrival: EMS History of Present Illness HPI Narrative: 86-year-old female with history of atrial fibrillation not on current anticoagulation is brought in by EMS from home where she is cared for by her family members who reports that patient has become increasingly lethargic and w eak over the past couple of weeks and report dark malodorous urine. Patient herself denies any complaints of chest pain, shortness of breath. Patient does have baseline dementia and EMS reports that the flexed position of her upper extremities is normal for her at baseline. Family does report that prior to her lethargy and weakness she was ambulating with a walker. Related Data Home Medications Medication Instructions Recorded Confirmed lisinopril 20 mg tablet 1 tab PO DAILY 04/05/21 04/05/21 Previous Rx's Medication Instructions Recorded acetaminophen 325 mg capsule 325 mg PO QID PRN pain #28 caps 02/24/20 (Tylenol) oxycodone 5 mg tablet 5 mg PO Q8H PRN pain #10 tabs 08/13/21 Allergies Allergy/AdvReac Type Severity Reaction Status Date / Time novacaine Allergy Intermediate Dizziness Uncoded 04/26/21 13:20 Review of Systems Review of Systems: Pertinent positives and negatives as stated in HPI and otherwise ROS is limited due to patient's baseline. [facility], [facility] Past Medical History Source: nursing notes reviewed Medical History Dyslipidemia Fall Hearing loss Hypertension Pelvic mass Surgical History History of arthroplasty of left ankle Family History Family History Father No problems noted. Mother CAD (coronary artery disease) Social History Social History Household Members: Family Housing: House Do you presently have visiting nurse or other home services: No Alcohol intake: never Patient Tobacco Use Status: Never used Tobacco e-Cigarette/Vaping Use: Never Used Advance Directives: Yes Advance Directives on File: Yes Advance Directives Date on File: 04/05/21 service: No Current occupational status: retired Physical Exam Vital Signs: Vital Signs: Last Vital Signs Temp 97.7 F 01/04/22 14:54 Pulse 83 01/04/22 14:54 Resp 16 01/04/22 14:54 BP 137/73 01/04/22 14:54 Pulse Ox 94 01/04/22 12:06 O2 Del Method 01/04/22 12:06 BMI result Body Mass Index 21.7 VITAL SIGNS: Reviewed. GENERAL: Elderly, fragile, in no acute distress. HEAD: Normocephalic/atraumatic EYES: PERRLA, EOMI EARS: Ext canals without abnormality NOSE: Nares patent bilateral OROPHARYNX: no oral lesions noted, posterior pharynx clear, moist mucosa NECK: Supple, no adenopathy LUNGS: Normal breath sounds. No adventitious sounds or accessory muscle use. SpO2<94>; CHEST WALL: Questionable deformity on the left chest wall but patient denies pain on palpation and no crepitus noted CARDIOVASCULAR: Regular rate and rhythm without noted murmurs, no JVD or lower extremity edema. ABDOMEN: Soft, non-tender, non-distended with bowel sounds, no palpable masses, no abrasions or ecchymosis noted. PELVIS: Stable, nontender MUSCULOSKELETAL: No tenderness, , no effusions noted on gross inspection. EXTREMITIES: No cyanosis, clubbing or edema LLE: appears to be deformity over the left lateral lower leg with overlying erythema/ecchymosis/swelling as well as overlying red/raised areas in that area but palpable DP/PT with good capillary refill LUE: There are erythematous areas to the left upper extremity that almost appear to be consistent with fingers and then a corresponding area on the opposing side that would correlate in the right conditions with a thumb. SKIN: Inspection of the skin reveals no rashes, ulcerations, jaundice, pallor, or petechiae. NEUROLOGIC: Alert and oriented x 2. Strength and sensation to light touch were grossly intact x 4, patient is noted to have bilateral upper extremity flexion at the elbows but has good hand tandem operator.. Course Course Course Narrative: 86-year-old female with history and clinical presentation concerning for possible markings on the body consistent with hand enamorado. Will scan head/chest/abdomen/pelvis as well obtain imaging of the left upper extremity and left lower extremity. Otherwise, patient appears to be neurovascularly intact as well as low clinical suspicion for neurologic etiology. On review of patient's chart she is reported to have a pelvic mass and we will further evaluate that. Review of all investigations shows detectable troponin without prior for comparison, no evidence ischemic changes the EKG, BNP is mildly elevated although lower than prior on comparison. On review of all imaging studies such as the left upper extremity/left lower extremity/pelvis there are no acute findings and awaiting official reads on CT scans. Patient remains hemodynamically stable and an Adult protective Services report was filed due to the concerns regarding the pattern of bruising that was noted to the left extremities. Daughter states patient has been bed bound, but patient lives with the son and [id number]. 1630: Case management did some further investigation and the son does state that patient was wedged between the bed and the wall this morning and that they had to grasp onto her left side to pull her out. Patient will be provided with a physical therapy evaluation and son does state that the patient has become more and more bed-bound and that they are unable to adequately care for her and are seeking placement. Patient is otherwise medically cleared for further evaluation. Reevaluation(s) Reevaluation #1: Patient placed in physician observation because the patient needed more time for physical therapy and case management placement. At the time observation was started the patient's vital signs were stable, patient is sleeping but arousable and oriented to person and place, neuro: Nonfocal, CV RRR, lungs clear Time: 17:03 MDM - Weakness Lab Data Result diagrams: 01/04/22 12:50 01/04/22 12:50 Labs: Lab Results 01/04/22 01/04/22 01/04/22 Range/Units 12:33 12:50 12:50 WBC 7.1 (4.8-10.8) X10*3/uL RBC 4.88 (4.20-5.50) X10*6/uL Hgb 14.6 (12.0-16.0) g/dl Hct 43.6 (37.0-47.0) % MCV 89.3 (80.0-98.0) fL MCH 29.9 (27.0-33.0) pg MCHC 33.5 (31.0-35.0) g/dl RDW 12.4 (11.0-16.0) % Plt Count 210 (160-400) X10*3/uL MPV 9.6 (9.4-12.3) fL Immature Gran % (Auto) 0.3 (0.0-0.4) % Neut % (Auto) 76.1 H (45-73) % Lymph % (Auto) 15.9 L (20-40) % [place] % (Auto) 7.1 (2-11) % Eos % (Auto) 0.3 (0-4) % Baso % (Auto) 0.3 (0-2) % Lymph # (Auto) 1.1 L (1.2-4.9) X10*3/uL [place] # (Auto) 0.5 (0.1-1.2) X10*3/uL Eos # (Auto) 0.0 (0.0-0.4) X10*3/uL Baso # (Auto) 0.0 (0.0-0.2) X10*3/uL Abs Immat Gran (auto) 0.02 (0.00-0.03) X10*3/uL Absolute Neuts (auto) 5.4 (2.0-8.3) x10*3/uL Absolute Nucleated RBC 0.000 (0.0-0.012) X10*3/uL Nucleated RBC % (auto) 0.0 (0.0-0.2) /100WBC PT (10.0-13.1) SEC INR (0.9-1.1) VBG pH (7.32-7.43) VBG pCO2 mmHg VBG pO2 mmHg VBG HCO3 (22-26) mmol/L VBG O2 Saturation % VBG Base Excess mmol/L Sodium 143 (135-145) mmol/L Potassium 3.9 (3.3-5.1) mmol/L Chloride 104 (96-108) mmol/L Carbon Dioxide 27 (22-29) mmol/L Anion Gap 16 (12-20) BUN 26 H (9-16) mg/dL Creatinine 0.89 (0.5-1.4) mg/dL Estim Creat Clear Calc 38.4 Estimated GFR 60 Random Glucose 104 (60-115) mg/dL Lactic Acid (0.5-2.0) mmol/L Calcium 9.0 (8.4-10.2) mg/dL Total Bilirubin 1.0 (0.0-1.0) mg/dL AST 31 D (5-31) U/L ALT 20 (0-31) U/L Alkaline Phosphatase 77 D (39-117) U/L Troponin I High Sens (<3.5-17.0) ng/L B-Natriuretic Peptide (<100) pg/mL Total Protein 6.4 L (6.5-8.0) g/dL Albumin 3.8 (3.5-5.0) g/dL Urine Color Yellow Urine Appearance Clear Urine pH 5.5 (5.0-9.0) Ur Specific [place] 1.010 (1.005-1.025) Urine Protein Negative (Neg-Trace) mg/dL Urine Glucose (UA) Negative (Negative) mg/dL Urine Ketones Negative (Negative) mg/dL Urine Blood Negative (Negative) Urine Nitrite Negative (Negative) Ur Leukocyte Esterase Negative (Negative) SARS-CoV-2 (PCR) COVID-19 (AJ) (Negative) COVID-19 Clin Com Influenza Type A (PCR) (Negative) Influenza Type B (PCR) (Negative) RSV RNA Qual (PCR) (Negative) SARS-CoV-2 RNA (RT-PCR) (Negative) 01/04/22 01/04/22 01/04/22 Range/Units 12:50 12:50 12:50 WBC (4.8-10.8) X10*3/uL RBC (4.20-5.50) X10*6/uL Hgb (12.0-16.0) g/dl Hct (37.0-47.0) % MCV (80.0-98.0) fL MCH (27.0-33.0) pg MCHC (31.0-35.0) g/dl RDW (11.0-16.0) % Plt Count (160-400) X10*3/uL MPV (9.4-12.3) fL Immature Gran % (Auto) (0.0-0.4) % Neut % (Auto) (45-73) % Lymph % (Auto) (20-40) % [place] % (Auto) (2-11) % Eos % (Auto) (0-4) % Baso % (Auto) (0-2) % Lymph # (Auto) (1.2-4.9) X10*3/uL [place] # (Auto) (0.1-1.2) X10*3/uL Eos # (Auto) (0.0-0.4) X10*3/uL Baso # (Auto) (0.0-0.2) X10*3/uL Abs Immat Gran (auto) (0.00-0.03) X10*3/uL Absolute Neuts (auto) (2.0-8.3) x10*3/uL Absolute Nucleated RBC (0.0-0.012) X10*3/uL Nucleated RBC % (auto) (0.0-0.2) /100WBC PT (10.0-13.1) SEC INR (0.9-1.1) VBG pH (7.32-7.43) VBG pCO2 mmHg VBG pO2 mmHg VBG HCO3 (22-26) mmol/L VBG O2 Saturation % VBG Base Excess mmol/L Sodium (135-145) mmol/L Potassium (3.3-5.1) mmol/L Chloride (96-108) mmol/L Carbon Dioxide (22-29) mmol/L Anion Gap (12-20) BUN (9-16) mg/dL Creatinine (0.5-1.4) mg/dL Estim Creat Clear Calc Estimated GFR Random Glucose (60-115) mg/dL Lactic Acid 1.0 (0.5-2.0) mmol/L Calcium (8.4-10.2) mg/dL Total Bilirubin (0.0-1.0) mg/dL AST (5-31) U/L ALT (0-31) U/L Alkaline Phosphatase (39-117) U/L Troponin I High Sens (<3.5-17.0) ng/L B-Natriuretic Peptide 173 H (<100) pg/mL Total Protein (6.5-8.0) g/dL Albumin (3.5-5.0) g/dL Urine Color Urine Appearance Urine pH (5.0-9.0) Ur Specific [place] (1.005-1.025) Urine Protein (Neg-Trace) mg/dL Urine Glucose (UA) (Negative) mg/dL Urine Ketones (Negative) mg/dL Urine Blood (Negative) Urine Nitrite (Negative) Ur Leukocyte Esterase (Negative) SARS-CoV-2 (PCR) COVID-19 (AJ) Invalid (Negative) COVID-19 Clin Com See Note Influenza Type A (PCR) (Negative) Influenza Type B (PCR) (Negative) RSV RNA Qual (PCR) (Negative) SARS-CoV-2 RNA (RT-PCR) (Negative) 01/04/22 01/04/22 01/04/22 Range/Units 12:50 13:02 13:53 WBC (4.8-10.8) X10*3/uL RBC (4.20-5.50) X10*6/uL Hgb (12.0-16.0) g/dl Hct (37.0-47.0) % MCV (80.0-98.0) fL MCH (27.0-33.0) pg MCHC (31.0-35.0) g/dl RDW (11.0-16.0) % Plt Count (160-400) X10*3/uL MPV (9.4-12.3) fL Immature Gran % (Auto) (0.0-0.4) % Neut % (Auto) (45-73) % Lymph % (Auto) (20-40) % [place] % (Auto) (2-11) % Eos % (Auto) (0-4) % Baso % (Auto) (0-2) % Lymph # (Auto) (1.2-4.9) X10*3/uL [place] # (Auto) (0.1-1.2) X10*3/uL Eos # (Auto) (0.0-0.4) X10*3/uL Baso # (Auto) (0.0-0.2) X10*3/uL Abs Immat Gran (auto) (0.00-0.03) X10*3/uL Absolute Neuts (auto) (2.0-8.3) x10*3/uL Absolute Nucleated RBC (0.0-0.012) X10*3/uL Nucleated RBC % (auto) (0.0-0.2) /100WBC PT (10.0-13.1) SEC INR (0.9-1.1) VBG pH 7.50 H (7.32-7.43) VBG pCO2 30 mmHg VBG pO2 89 mmHg VBG HCO3 23 (22-26) mmol/L VBG O2 Saturation 99.0 % VBG Base Excess 1.9 mmol/L Sodium (135-145) mmol/L Potassium (3.3-5.1) mmol/L Chloride (96-108) mmol/L Carbon Dioxide (22-29) mmol/L Anion Gap (12-20) BUN (9-16) mg/dL Creatinine (0.5-1.4) mg/dL Estim Creat Clear Calc Estimated GFR Random Glucose (60-115) mg/dL Lactic Acid (0.5-2.0) mmol/L Calcium (8.4-10.2) mg/dL Total Bilirubin (0.0-1.0) mg/dL AST (5-31) U/L ALT (0-31) U/L Alkaline Phosphatase (39-117) U/L Troponin I High Sens 23.9 H (<3.5-17.0) ng/L B-Natriuretic Peptide (<100) pg/mL Total Protein (6.5-8.0) g/dL Albumin (3.5-5.0) g/dL Urine Color Urine Appearance Urine pH (5.0-9.0) Ur Specific [place] (1.005-1.025) Urine Protein (Neg-Trace) mg/dL Urine Glucose (UA) (Negative) mg/dL Urine Ketones (Negative) mg/dL Urine Blood (Negative) Urine Nitrite (Negative) Ur Leukocyte Esterase (Negative) SARS-CoV-2 (PCR) COVID-19 (AJ) (Negative) COVID-19 Clin Com Influenza Type A (PCR) NEGATIVE (Negative) Influenza Type B (PCR) NEGATIVE (Negative) RSV RNA Qual (PCR) NEGATIVE (Negative) SARS-CoV-2 RNA (RT-PCR) NEGATIVE (Negative) 01/04/22 01/04/22 01/04/22 Range/Units 14:20 14:21 15:18 WBC (4.8-10.8) X10*3/uL RBC (4.20-5.50) X10*6/uL Hgb (12.0-16.0) g/dl Hct (37.0-47.0) % MCV (80.0-98.0) fL MCH (27.0-33.0) pg MCHC (31.0-35.0) g/dl RDW (11.0-16.0) % Plt Count (160-400) X10*3/uL MPV (9.4-12.3) fL Immature Gran % (Auto) (0.0-0.4) % Neut % (Auto) (45-73) % Lymph % (Auto) (20-40) % [place] % (Auto) (2-11) % Eos % (Auto) (0-4) % Baso % (Auto) (0-2) % Lymph # (Auto) (1.2-4.9) X10*3/uL [place] # (Auto) (0.1-1.2) X10*3/uL Eos # (Auto) (0.0-0.4) X10*3/uL Baso # (Auto) (0.0-0.2) X10*3/uL Abs Immat Gran (auto) (0.00-0.03) X10*3/uL Absolute Neuts (auto) (2.0-8.3) x10*3/uL Absolute Nucleated RBC (0.0-0.012) X10*3/uL Nucleated RBC % (auto) (0.0-0.2) /100WBC PT 12.9 (10.0-13.1) SEC INR 1.1 (0.9-1.1) VBG pH (7.32-7.43) VBG pCO2 mmHg VBG pO2 mmHg VBG HCO3 (22-26) mmol/L VBG O2 Saturation % VBG Base Excess mmol/L Sodium (135-145) mmol/L Potassium (3.3-5.1) mmol/L Chloride (96-108) mmol/L Carbon Dioxide (22-29) mmol/L Anion Gap (12-20) BUN (9-16) mg/dL Creatinine (0.5-1.4) mg/dL Estim Creat Clear Calc Estimated GFR Random Glucose (60-115) mg/dL Lactic Acid (0.5-2.0) mmol/L Calcium (8.4-10.2) mg/dL Total Bilirubin (0.0-1.0) mg/dL AST (5-31) U/L ALT (0-31) U/L Alkaline Phosphatase (39-117) U/L Troponin I High Sens 22.7 H (<3.5-17.0) ng/L B-Natriuretic Peptide (<100) pg/mL Total Protein (6.5-8.0) g/dL Albumin (3.5-5.0) g/dL Urine Color Urine Appearance Urine pH (5.0-9.0) Ur Specific [place] (1.005-1.025) Urine Protein (Neg-Trace) mg/dL Urine Glucose (UA) (Negative) mg/dL Urine Ketones (Negative) mg/dL Urine Blood (Negative) Urine Nitrite (Negative) Ur Leukocyte Esterase (Negative) SARS-CoV-2 (PCR) Cancelled COVID-19 (AJ) (Negative) COVID-19 Clin Com Influenza Type A (PCR) (Negative) Influenza Type B (PCR) (Negative) RSV RNA Qual (PCR) (Negative) SARS-CoV-2 RNA (RT-PCR) (Negative) ECG Data Attestation: I personally reviewed and interpreted this ECG as follows: Prior ECG tracings: available for review Interpretation: Poor quality despite multiple attempts, appears to be irregular and unclear whether there are P-waves, QRS and QTC are within normal limits, HR-75 Discharge Plan Discharge Clinical Impression: Dementia, Hypertension, Physical deconditioning Patient Disposition: Still a Patient Prescriptions: No Action acetaminophen [Tylenol] 325 mg capsule 325 mg PO QID PRN (Reason: pain) Qty: 28 0RF lisinopril 20 mg tablet 1 tab PO DAILY oxycodone 5 mg tablet 5 mg PO Q8H PRN (Reason: pain) Qty: 10 0RF
[2022-01-04 12:43] LABS: Appearance Urine Clear; Color Urine Yellow; Glucose Urine UA Negative (Negative); PH 5.5 (5.0-9.0); Urine Blood Negative (Negative); Urine Protein Negative (Neg-Trace)
[2022-01-04 12:44] LABS: Leukocyte Esterase Urine Negative (Negative); Nitrite Urine Negative (Negative); Urine Ketones Negative (Negative)
[2022-01-04 13:04] LABS: MANUAL DIFF FLAG NO
[2022-01-04 13:05] LABS: Basophils Percent Auto 0.3 % (0-2); Eosinophils Percent Auto 0.3 % (0-4); Hematocrit 43.6 % (37.0-47.0); Hemoglobin 14.6 g/dl (12.0-16.0); Imm Gran Abs Auto 0.02 X10*3/uL (0.00-0.03); Imm Gran Pct Auto 0.3 % (0.0-0.4); Lymphocytes Absolute Auto 1.1 X10*3/uL (1.2-4.9); Lymphocytes Percent Auto 15.9 % (20-40); Mean Corpuscular HGB Conc 33.5 g/dl (31.0-35.0); Mean Corpuscular Hemoglobin 29.9 pg (27.0-33.0); Mean Corpuscular Volume 89.3 fL (80.0-98.0); Mean Platelet Volume 9.6 fL (9.4-12.3); Monocytes Absolute Auto 0.5 X10*3/uL (0.1-1.2); Monocytes Percent Auto 7.1 % (2-11); Neutrophils Absolute Auto 5.4 x10*3/uL (2.0-8.3); Neutrophils Percent Auto 76.1 % (45-73); Platelet Count 210 X10*3/uL (160-400); Red Blood Count 4.88 X10*6/uL (4.20-5.50); Red Cell Distribution Width 12.4 % (11.0-16.0); White Blood Count 7.1 X10*3/uL (4.8-10.8)
[2022-01-04 13:19] LABS: VBG Base Excess 1.9 mmol/L; VBG HCO3 23 mmol/L (22-26); VBG pCO2 30 mmHg; VBG pO2 89 mmHg
[2022-01-04 13:20] LABS: Venous Blood Gas Refer to POC result
[2022-01-04 13:24] LABS: Alanine Aminotransferase 20 U/L (0-31); Albumin Level 3.8 g/dL (3.5-5.0); Alkaline Phosphatase 77 U/L (39-117); Anion Gap 16 (12-20); Aspartate Amino Transferase 31 U/L (5-31); Blood Urea Nitrogen 26 mg/dL (9-16); Carbon Dioxide 27 mmol/L (22-29); Chloride 104 mmol/L (96-108); Creatinine Clr Calc Pharmacy 38.4; Estimated Glomerular Filt Rate 60; Glucose Random 104 mg/dL (60-115); Potassium 3.9 mmol/L (3.3-5.1); Sodium 143 mmol/L (135-145); Total Protein 6.4 g/dL (6.5-8.0)
[2022-01-04 13:31] LABS: B Type Natriuretic Peptide 173 pg/mL (<100); Troponin-I High Sensitivity 23.9 ng/L (<3.5-17.0)
[2022-01-04 13:37] LABS: COVID-19 Test Invalid (Negative)
[2022-01-04 14:33] LABS: INTERNATIONAL NORM RATIO 1.1 (0.9-1.1); Prothrombin Time 12.9 SEC (10.0-13.1)
[2022-01-04 14:54] VITALS: BP 137/73; PULSE 83; RESP 16; TEMP 36.5
[2022-01-04 15:55] LABS: Troponin-I High Sensitivity 22.7 ng/L (<3.5-17.0)
[2022-01-04 16:35] LABS: Influenza A PCR NEGATIVE (Negative); Influenza B PCR NEGATIVE (Negative); Resp Syncy Virus RNA Qual PCR NEGATIVE (Negative); SARS COV2 PCR INHOUSE NEGATIVE (Negative)
--- NOTE | 2022-01-04 16:55 | MHC.CM.ED ---
Addendum entered by Isabela Ly 01/04/22 17:32: HCP on file. HCP#1/son Hunter Duffy ([phone]) & HCP#2/daughter Kelley Duffy ([phone]). Vax/boosted x1/[employer]. PCP Dr. Tyler Pack. Addendum entered by Isabela Renard Zahra Ly 01/04/22 17:08: After today's issue with her being stuck between the wall and her bed, they felt she needed to come to the ED. They feel they can no longer care for her at home and that she needs LTC. They tell CM they have funds to private pay. CM explained that LTC can cost $400 + a day, 10,000-12,000 a month and that most facilities require 1 month payment up front. Lisa and Hunter tell CM that the family has the funds. They are requesting facilities in [place], with [address] and then are agreeable to referrals in the area. Aware that referrals will go out today, but we will not hear from the facilities until the morning. Aware that CM will f/u with them in the morning. Both Dr. Durant and Cally RN aware. CM to follow for d/c planning Original Note: CM attempted to meet with patient, however she is confused. Answers to name, but cannot have any meaningful conversation with CM. Dr. Durant and LAVONNE Alamo concerned about some red areas on L arm and leg, which appear to be fingers/thumb enamorado. CM spoke with DIR Lisa Gordillo and HCP/Son Hunter who explained that they found the patient stuck between the wall and the bed this morning. They had to pull her out and she ended up with some red enamorado on her L leg and arm. This explanation is consistent with enamorado on patient. Cally had already filed ? elder at risk earlier today. Both Dr. Durant and Cally RN are aware of above conversation. Hunter and Lisa tell CM that the patient lives with them. They have no help at home. They tell CM that for several years pt has used a walker, but has needed help at home. Over the past 3 weeks, pt has steadily been declining. Pt has been unable to use her walker, unable to assist with transfers, has been eating poorly and has needed total care. They have been lifting her on the toilet, into a chair and into bed.
--- NOTE | 2022-01-04 17:31 | PHA.MEDREC ---
Addendum entered by Kirk Alston, [facility] 01/04/22 17:38: Lisa called back, pt is just on lisinopril Original Note: Pharmacy Consult ? Medication Reconciliation Pharmacy has completed the medication reconciliation. Med list obtained from pt's pharmacy. Called pt's son [phone], left message, will update if son calls back
[2022-01-05] VITALS: BP 142/89; PULSE 82; RESP 16; TEMP 36.5; O2SAT 97
--- NOTE | 2022-01-05 03:51 | PC.NURSE ---
At 03:35 pt was dry, repositioned and given a warm blanket.
[2022-01-05 04:00] VITALS: BP 177/102; PULSE 80; RESP 17; TEMP 36.5; O2SAT 94
[2022-01-05 06:00] VITALS: BP 178/82; PULSE 60; RESP 14; TEMP 36.5; O2SAT 97
[2022-01-05 11:12] VITALS: BP 178/82; PULSE 60; O2SAT 97
--- NOTE | 2022-01-05 12:29 | MHC.CM.ED ---
Patient remains in ER. Physical therapy eval completed. Short term rehab is recommended. Received telephone call from patient's family. [facility] [address] it now first choice. [facility] is able to offfer a bed. [facility] booked for 2pm. Patient, son Georgina Harrison LAVONNE and Alicia ARIAS aware. Continue to monitor for d/c needs.
== END 2022-01-05 14:21 ==
PROVIDERS: Emergency Provider Student in an Organized Health Care Education/Training Program
DX: R41.82 Altered mental status, unspecified (principal); R51.9 Headache, unspecified; M54.6 Pain in thoracic spine; R60.0 Localized edema; R06.02 Shortness of breath; M79.602 Pain in left arm; R10.9 Unspecified abdominal pain; Z20.822 Contact with and (suspected) exposure to COVID-19; Z79.899 Other long term (current) drug therapy
CPT/HCPCS: 0241U; 36415; 70450; 71250; 73090; 73502; 73590; 74176; 80053; 81003; 82803; 83605; 83880; 84484; 85025; 85610; 87040; 87635; 93005; 97162; 99285; U0003; U0005